=== PATIENT | female | born 1955 | race Caucasian/White ===

== ENCOUNTER → 2020-05-25 11:24 | Outpatient (BNVA) | payer MEDICARE, MEDICAID, SELFPAY | PROVIDERS: PCP Internal Medicine; Referring Provider Internal Medicine; Visit Provider Internal Medicine Gastroenterology | DX: Z76.89 Persons encountering health services in other specified circumstances (principal) | CPT/HCPCS: Q3014 ==

== ENCOUNTER 2020-05-27 08:31 | Outpatient (REF) | payer MEDICARE, MEDICAID, SELFPAY ==
[2020-05-27 11:21] LABS: MANUAL DIFF FLAG NO
[2020-05-27 11:27] LABS: Basophils Absolute Auto 0.1 X10*3/uL (0.0-0.2); Basophils Percent Auto 0.6 % (0-2); Eosinophils Absolute Auto 0.4 X10*3/uL (0.0-0.4); Eosinophils Percent Auto 3.9 % (0-4); Hematocrit 43.6 % (37-47); Hemoglobin 14.1 g/dl (12.0-16.0); Imm Gran Abs Auto 0.05 X10*3/uL (0.00-0.03); Imm Gran Pct Auto 0.5 % (0.0-0.4); Lymphocytes Absolute Auto 2.3 X10*3/uL (1.2-4.9); Lymphocytes Percent Auto 23.8 % (20-40); Mean Corpuscular HGB Conc 32.3 g/dl (31.0-35.0); Mean Corpuscular Hemoglobin 28.5 pg (27.0-33.0); Mean Corpuscular Volume 88.1 fL (80-98); Mean Platelet Volume 10.7 fL (9.4-12.3); Monocytes Absolute Auto 0.7 X10*3/uL (0.1-1.2); Monocytes Percent Auto 7.8 % (2-11); Neutrophils Percent Auto 63.4 % (45-73); Platelet Count 242 X10*3/uL (160-400); Red Blood Count 4.95 X10*6/uL (4.20-5.50); Red Cell Distribution Width 13.2 % (11.0-16.0); White Blood Count 9.5 X10*3/uL (4.8-10.8)
[2020-05-27 11:31] LABS: Prothrombin Time 11.6 SEC (10.8-13.0)
[2020-05-27 12:08] LABS: Alanine Aminotransferase 8 U/L (0-31); Albumin Level 4.4 g/dL (3.5-5.0); Alkaline Phosphatase 55 U/L (39-117); Anion Gap 13 (12-20); Aspartate Amino Transferase 14 U/L (5-31); Bilirubin Total 0.6 mg/dL (0.0-1.0); Blood Urea Nitrogen 13 mg/dL (9-16); Calcium 9.2 mg/dL (8.4-10.2); Carbon Dioxide 30 mmol/L (22-29); Chloride 105 mmol/L (96-108); Estimated Glomerular Filt Rate > 60; Glucose Random 98 mg/dL (60-115); Potassium 4.3 mmol/l (3.3-5.1); Sodium 144 mmol/L (135-145); Total Protein 6.9 g/dL (6.5-8.0)
[2020-06-02 13:27] LABS: Alpha Fetoprotein 4.9 ng/mL
== END 2020-05-27 08:32 | disposition home or self-care (01) ==
LOC: HO.HMGCLDS 08:31
PROVIDERS: PCP Internal Medicine; Visit Provider Internal Medicine Gastroenterology
DX: K70.31 Alcoholic cirrhosis of liver with ascites (principal)
CPT/HCPCS: 36415; 80053; 82105; 85025; 85610

== ENCOUNTER 2020-06-28 10:27 | Outpatient (REF) | payer MEDICARE, MEDICAID, SELFPAY ==
--- NOTE | 2020-06-28 10:32 | US_ITS ---
EXAMINATION: US ABDOMEN COMPLETE CLINICAL INFORMATION: Alcoholic cirrhosis of liver with ascites. COMPARISON: Ultrasound abdomen 10/27/2019 and 10/14/2018.. Ultrasound paracentesis 08/15/2017. CT abdomen and pelvis 08/14/2017 TECHNIQUE: Real-time imaging of the abdominal viscera. FINDINGS: PANCREAS: Normal. ABDOMINAL AORTA: The proximal, mid, and distal segments are normal in caliber. There is evidence of atherosclerotic disease with vessel wall calcification. INFERIOR VENA CAVA: Visualized portions are normal. LIVER: Liver echotexture is slightly heterogeneous chest of hepatocellular disease. The contour of the liver slightly scalloped suggestive of cirrhosis. Liver appears normal in size. No focal liver lesion or biliary duct dilatation is seen. GALLBLADDER: There is a small gallstone in the gallbladder. The gallbladder wall does not appear thickened. The gallbladder is normal in size. COMMON BILE DUCT: Normal in caliber measuring 0.45 cm in diameter. RIGHT KIDNEY: Normal. No hydronephrosis. No renal calculi or focal parenchymal lesions. The kidney measures 8.8 cm in maximum dimension. LEFT KIDNEY: Normal. No hydronephrosis. No renal calculi or focal parenchymal lesions. The kidney measures 10.3 cm in maximum dimension. SPLEEN: Normal. The spleen measures 7.9 cm in maximum dimension. FREE FLUID: None. US/US abdomen complete IMPRESSION: Cirrhotic-appearing liver. No focal liver lesion or ascites seen. Small gallstone.
== END 2020-06-28 10:28 | disposition home or self-care (01) ==
LOC: HO.US 10:27
PROVIDERS: PCP Internal Medicine; Visit Provider Internal Medicine Gastroenterology
DX: K70.31 Alcoholic cirrhosis of liver with ascites (principal)
CPT/HCPCS: 76700

== ENCOUNTER → 2020-07-22 09:48 | Outpatient (BNVA) | payer MEDICARE, MEDICAID, SELFPAY | PROVIDERS: PCP Internal Medicine; Referring Provider Internal Medicine; Visit Provider Internal Medicine Gastroenterology | CPT/HCPCS: Q3014 ==

== ENCOUNTER 2023-04-10 12:25 | Emergency (ER) | payer OTHER, SELFPAY ==
[2023-04-10 14:00] VITALS: BP 179/59; PULSE 49; RESP 16; TEMP 36.2; O2SAT 99; BMI 26.2
[2023-04-10 14:21] LABS: MANUAL DIFF FLAG NO
[2023-04-10 14:22] LABS: Basophils Absolute Auto 0.1 X10*3/uL (0.0-0.2); Basophils Percent Auto 0.6 % (0-2); Eosinophils Absolute Auto 0.3 X10*3/uL (0.0-0.4); Hematocrit 40.4 % (37.0-47.0); Imm Gran Abs Auto 0.04 X10*3/uL (0.00-0.03); Imm Gran Pct Auto 0.4 % (0.0-0.4); Lymphocytes Absolute Auto 2.1 X10*3/uL (1.2-4.9); Lymphocytes Percent Auto 22.5 % (20-40); Mean Corpuscular HGB Conc 32.2 g/dl (31.0-35.0); Mean Corpuscular Hemoglobin 28.6 pg (27.0-33.0); Mean Platelet Volume 9.8 fL (9.4-12.3); Monocytes Absolute Auto 0.9 X10*3/uL (0.1-1.2); Monocytes Percent Auto 9.3 % (2-11); Neutrophils Percent Auto 64.2 % (45-73); Platelet Count 271 X10*3/uL (160-400); Red Blood Count 4.54 X10*6/uL (4.20-5.50); Red Cell Distribution Width 13.1 % (11.0-16.0); White Blood Count 9.3 X10*3/uL (4.8-10.8)
[2023-04-10 14:44] LABS: Alanine Aminotransferase 11 U/L (0-31); Albumin Level 4.5 g/dL (3.5-5.0); Alkaline Phosphatase 65 U/L (39-117); Anion Gap 15 (12-20); Aspartate Amino Transferase 16 U/L (5-31); Bilirubin Total 0.8 mg/dL (0.0-1.0); Blood Urea Nitrogen 20 mg/dL (9-16); Calcium 10.1 mg/dL (8.4-10.2); Carbon Dioxide 25 mmol/L (22-29); Chloride 107 mmol/L (96-108); Creatinine Clr Calc Pharmacy 44.6; Estimated Glomerular Filt Rate 54; Glucose Random 91 mg/dL (60-115); Magnesium 2.2 mg/dL (1.6-2.6); Potassium 4.8 mmol/L (3.3-5.1); Sodium 142 mmol/L (135-145); Total Protein 7.6 g/dL (6.5-8.0)
[2023-04-10 14:47] LABS: Lipase 40 U/L (8-78)
== END 2023-04-10 20:31 | disposition left against medical advice (07) ==
LOC: HO.ED 20:20
PROVIDERS: Physician Assistant; Emergency Provider Emergency Medicine; PCP Internal Medicine
DX: R10.9 Unspecified abdominal pain (principal)
CPT/HCPCS: 36415; 80053; 83690; 83735; 85025; 99281; 99283

== ENCOUNTER 2023-05-31 10:30 | Outpatient (AMB) | payer OTHER, SELFPAY ==
--- NOTE | 2023-05-31 10:41 | MHC.OFFVIS ---
Intake Vital Signs 05/31/23 11:05 Height 5 ft 1 in Weight 140 lb BMI 26.4 BP 117/54 L Blood Pressure Location Lt brachial Position Sitting Pulse 49 L Intake Visit Reasons: Cirrhosis Intake Note: Patient follow up for Cirrhosis Patient denies any GI issues. 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 Accompanied by: Self / Same As Patient Allergies No Known Allergies Allergy (Verified 05/31/23 10:41) Medication List - Last Reconciled 05/31/23 by Chetan White MD atenolol 25 mg PO DAILY bupropion HCl 100 mg PO QAM sulindac 150 mg PO BID HPI Cirrhosis HPI Details GI CLINIC VISIT FOR THIS 67-YEAR-OLD FEMALE FOR FOLLOW-UP OF CIRRHOSIS AND PERSONAL HISTORY OF COLON POLYPS Pt returns after a hiatus of almost 3 years CHRONIC ILLNESSES: htn, depression, past history of cocaine and ETOH abuse complicated by ETOH related cirrhosis with ascites [facility]. 07/28/19 H & H of 14.3 & 43.8, plt 202, INR 1.0, Normal BMP and LFTs. IMAGING STUDIES: 06/2020 ABDOMINAL ULTRASOUND SHOWED: LIVER: Liver echotexture is slightly heterogeneous chest of hepatocellular disease. The contour of the liver slightly scalloped suggestive of cirrhosis. Liver appears normal in size. No focal liver lesion or biliary duct dilatation is seen. GALLBLADDER: There is a small gallstone in the gallbladder. The gallbladder wall does not appear thickened. The gallbladder is normal in size. ENDOSCOPIC STUDIES: Pt had an EGD and a colonoscopy on 10/21/18: Endoscopy Findings: ESOPHAGUS: Minimal esophagitis at GE junction STOMACH: Antral gastritis ? related to NSAIDS Colonoscopy Findings: One polyp removed Moderate diverticulosis seen in the entire colon Small hemorrhoids on retroflexed exam. Plan: Continue present medications (Ranitidine 150 mg PO once daily) Patient has an appointment on 11/04/18 in the GI Clinic with Chetan White M.D. Repeat Colonoscopy interval based on path results - in 5 years if polyps are adenomatous and 10 years if polyps are hyperplastic (past history of colon polyps on 1st colon and 2nd colon was negative). Above findings were reviewed with the patient and colon polyps and diverticulosis handouts were provided. A. Stomach, biopsy: Mild chronic inactive gastritis; no Helicobacter organisms seen. B. Colon, sigmoid, polypectomy: Hyperplastic mucosal polyp TODAY'S VISIT Did not come for FU appts since her BF and lost her apartment and car Was living with daughter and was not happy and resumed drinking Now has her own place and doing better except for arthritis and back Scheduled for GB surgery on 06/13/23 Denies abdominal pain or distension Quitted smoking November, after having procedures - lower extremity stent No ETOH since August, PAST VISITS: Staying home. Has been gaining some weight. Notes some abdominal distension for the past month - thinks she is eating too much junk food. Denies lower extermity edema No ETOH use since 07/2017. Denies fatigue and has trouble going to sleep at night. Keeps waking up at night - she was prescribed Hydroxyzine 50 mg by her PCP and does not help. Tried Benadryl in the past which did not help either. Denies nausea, heartburn, dysphagia, change in bowel habits, melena or rectal bleeding. Continues to smoke half pack per day-decreased from 1 pack per day in the past [facility] Medical History (Updated 05/31/23 @ 11:46 by Chetan White MD) Cocaine abuse Surgical History Hx of tubal ligation Hx of endoscopy History of colonoscopy Family History Father No problems noted. Mother Hx of type 1 diabetes mellitus Brother No problems noted. Sister No problems noted. Social History Household Members: Significant Other Alcohol intake: former Year quit: 3 yr Cigarette Packs Per Day: 0.5 Substance Use Type: Marijuana Current occupational status: retired Review of Systems Const All systems reviewed & are unremarkable except as noted in HPI and below Physical Exam Vital Signs: Last Vital Signs Pulse 49 L 05/31/23 11:05 BP 117/54 L 05/31/23 11:05 BMI result Body Mass Index 26.4 Const General: healthy appearing and no acute distress Nutritional Appearance: overweight Orientation/consciousness: patient oriented x3 Limitations: no limitations HEENT Head: Yes normal to inspection Ears: hearing grossly normal bilaterally Eyes Sclerae: sclerae normal Pupils: Equal, round and reactive pupils present Neck Neck: Yes normal visual inspection Chest Chest palpation & inspection: normal inspection of the chest Resp Effort & Inspection: normal respiratory effort Auscultation: clear to auscultation bilaterally Cardio Palpation: normal PMI Rate: regular rate Rhythm: regular rhythm Heart sounds: S1 normal heart sound present, S2 normal heart sound present and no murmurs GI Palpation (GI): Soft to palpation, nontender and No hepatosplenomegaly present Auscultation: normal bowel sounds Rectal Exam - Female: deferred Skin General skin exam: no rashes or lesions noted Neuro General: patient oriented x3, gait normal and moves all extremities Cranial nerves: Yes Equal, round and reactive pupils present Psych Appearance: grossly normal Mental Status: mental status grossly normal Assessment & Plan Assessment & Plan (1) GERD (gastroesophageal reflux disease): Code(s): K21.9 - Gastro-esophageal reflux disease without esophagitis (2) Alcoholic cirrhosis of liver with ascites: Code(s): K70.31 - Alcoholic cirrhosis of liver with ascites (3) Colon cancer screening: Comment: Colonoscopy on 10/21/2018 showed diverticulosis and hyperplastic polyp was removed. Repeat Colonoscopy is advised in 10 years (past history of colon polyps on 1st colon and 2nd colon was negative). Code(s): Z12.11 - Encounter for screening for malignant neoplasm of colon Plan 67 YF with htn, depression, past history of cocaine and ETOH abuse complicated by ETOH related cirrhosis with ascites. She quitted drinking 2 years ago with improvement in abdominal distension. Patient stopped diuretics since her LFTs were normal and no ascites was noted on abdominal ultrasound. No varices noted on past EGD. She has been abstinent for the past 2 years. Patient was advised to take Benadryl as needed for sleep disturbance. Colonoscopy on 10/21/2018 showed diverticulosis and hyperplastic polyp was removed. Repeat Colonoscopy is advised in 10 years (past history of colon polyps on 1st colon and 2nd colon was negative). Patient was advised to schedule an abd US and follow up in 6 months. Orders: Orders US abdomen limited Today K70.31 - Alcoholic cirrhosis of liver with ascites Coding Level of Care Code Est Pt Level 4 (52107) Diagnoses GERD (gastroesophageal reflux disease) K21.9 Alcoholic cirrhosis of liver with ascites K70.31 Colon cancer screening Z12.11 Time Spent (min) 21
[2023-05-31 11:05] VITALS: BP 117/54; PULSE 49; BMI 26.4
== END 2023-05-31 12:58 | disposition home or self-care (01) ==
PROVIDERS: PCP Internal Medicine; Visit Provider Internal Medicine Gastroenterology
DX: K21.9 Gastro-esophageal reflux disease without esophagitis (principal); K70.31 Alcoholic cirrhosis of liver with ascites; Z12.11 Encounter for screening for malignant neoplasm of colon
CPT/HCPCS: 99214

== ENCOUNTER → 2023-05-31 10:30 | Outpatient (BNVA) | payer OTHER, SELFPAY | PROVIDERS: PCP Internal Medicine; Visit Provider Internal Medicine Gastroenterology | DX: Z12.11 Encounter for screening for malignant neoplasm of colon (principal); K21.9 Gastro-esophageal reflux disease without esophagitis; K70.31 Alcoholic cirrhosis of liver with ascites | CPT/HCPCS: 99212 ==

== ENCOUNTER 2023-07-06 10:27 | Outpatient (REF) | payer OTHER, SELFPAY ==
--- NOTE | ~2023-07-06 | US_ITS ---
EXAMINATION: US ABDOMEN LIMITED CLINICAL INFORMATION: Alcoholic cirrhosis of liver with ascites. Screen for HCC and ascites. COMPARISON: Ultrasound abdomen complete 06/28/2020 and 10/27/2019. CT abdomen and pelvis 08/14/2017. TECHNIQUE: Real-time imaging of the right upper quadrant abdominal viscera. FINDINGS: PANCREAS: Normal. LIVER: Liver chronically has coarse parenchymal echotexture and slightly nodular surface contour consistent with cirrhosis. No evidence of focal liver lesion or intrahepatic ductal dilatation. GALLBLADDER: Surgically absent. COMMON BILE DUCT: Normal in caliber measuring 0.6 - 0.7 cm in diameter. RIGHT KIDNEY: Normal. No hydronephrosis. No renal calculi or focal parenchymal lesions. The kidney measures approximately 8.5 cm in maximum dimension. FREE FLUID: None. US/US abdomen limited IMPRESSION: No evidence of hepatocellular carcinoma or ascites. No new observations compared to 10/27/2019.
== END 2023-07-06 10:28 | disposition home or self-care (01) ==
LOC: HO.US 10:27
PROVIDERS: PCP Internal Medicine; Visit Provider Internal Medicine Gastroenterology
DX: K70.31 Alcoholic cirrhosis of liver with ascites (principal)
CPT/HCPCS: 76705

== ENCOUNTER 2023-12-06 11:46 | Outpatient (REF) | payer OTHER, SELFPAY ==
[2023-12-06 12:51] LABS: MANUAL DIFF FLAG NO
[2023-12-06 14:02] LABS: Basophils Absolute Auto 0.1 X10*3/uL (0.0-0.2); Basophils Percent Auto 0.8 % (0-2); Eosinophils Absolute Auto 0.2 X10*3/uL (0.0-0.4); Eosinophils Percent Auto 2.4 % (0-4); Hematocrit 38.3 % (37.0-47.0); Hemoglobin 12.8 g/dl (12.0-16.0); Imm Gran Abs Auto 0.03 X10*3/uL (0.00-0.03); Imm Gran Pct Auto 0.4 % (0.0-0.4); Lymphocytes Absolute Auto 1.4 X10*3/uL (1.2-4.9); Lymphocytes Percent Auto 17.4 % (20-40); Mean Corpuscular HGB Conc 33.4 g/dl (31.0-35.0); Mean Corpuscular Hemoglobin 29.8 pg (27.0-33.0); Mean Corpuscular Volume 89.1 fL (80.0-98.0); Mean Platelet Volume 10.9 fL (9.4-12.3); Monocytes Absolute Auto 0.8 X10*3/uL (0.1-1.2); Monocytes Percent Auto 9.6 % (2-11); Neutrophils Absolute Auto 5.5 x10*3/uL (2.0-8.3); Neutrophils Percent Auto 69.4 % (45-73); Platelet Count 246 X10*3/uL (160-400); Red Cell Distribution Width 13.7 % (11.0-16.0); White Blood Count 7.9 X10*3/uL (4.8-10.8)
[2023-12-06 14:21] LABS: Prothrombin Time 12.5 SEC (11.1-13.3)
[2023-12-06 14:49] LABS: Vitamin D 25-OH Total 34.7 ng/mL (>30)
[2023-12-07 08:02] LABS: Hepatitis A Antibody IgG Nonreactive (Nonreactive); ~Hepatitis A Antibody IgG 0.48 S/CO (0.00-0.99)
[2023-12-07 08:13] LABS: HBS Num1 0.28 mIU/mL (0-7.99); HBc Num1 0.08 S/CO (0.00-0.79); HBsAGNum1 0.26 S/CO (0.00-0.99); Hepatitis B Core Antibody Nonreactive (Nonreactive); Hepatitis B Surface Antigen Negative (Negative); ~HepC Num1 0.07 S/CO (0.00-0.79); ~Hepatitis B Surface Antibody NONREACTIVE (Nonreactive); ~Hepatitis C Antibody Nonreactive (Nonreactive)
[2023-12-22 01:05] LABS: FIB-ALT 7 U/L (6-29); FIB-Alpha-2-Macroglobulin 257 mg/dL (106-279); FIB-Apolipoprotein A1 161 mg/dL (101-198); FIB-GGT 17 U/L (3-65); FIB-Haptoglobin 220 mg/dL (43-212); FIB-Total Bilirubin 0.7 mg/dL (0.2-1.2); Liver Fibrosis Score 0.27; Liver Fibrosis Stage F1; Nec Inflam Act Grade A0; Nec Inflam Act Score 0.01
== END 2023-12-06 11:47 | disposition home or self-care (01) ==
LOC: HO.LAB 11:46
PROVIDERS: PCP Internal Medicine; Visit Provider Internal Medicine Gastroenterology
DX: K70.31 Alcoholic cirrhosis of liver with ascites (principal); K21.9 Gastro-esophageal reflux disease without esophagitis
CPT/HCPCS: 36415; 81596; 82306; 85025; 85610; 86704; 86706; 86708; 86803; 87340; 99212

== ENCOUNTER 2023-12-06 11:46 | Outpatient (AMB) | payer OTHER, SELFPAY ==
--- NOTE | 2023-12-06 11:49 | A.OFFVIS_ITS ---
Vital Signs 12/06/23 11:50 Height 5 ft 1 in Weight 135 lb BMI 25.5 BP 131/49 L Blood Pressure Location Lt brachial Position Sitting Pulse 54 Intake Visit Reasons: 6 month follow up Intake Note: Patient follow up for Alcoholic Cirrhosis of liver with ascites. Patient denies any GI issues. Transcribing Operators Supervisor Required: No Accompanied by: Self / Same As Patient Allergies No Known Allergies Allergy (Verified 05/31/23 10:41) Medication List - Last Reconciled 12/06/23 by Chetan White MD atenolol 25 mg PO DAILY atorvastatin 10 mg PO DAILY bupropion HCl XL 150 mg PO DAILY clopidogrel 75 mg PO DAILY estradiol 0.01%(0.1mg/gram) vaginal hydroxyzine HCl 25 mg PO BEDTIME PRN mirabegron ER (Myrbetriq) 25 mg PO DAILY mirtazapine 7.5 mg PO BEDTIME spironolactone 50 mg PO DAILY sulindac 150 mg PO BID HPI HPI 6 month follow up: Details: GI CLINIC VISIT FOR THIS 67-YEAR-OLD FEMALE FOR FOLLOW-UP OF CIRRHOSIS AND PERSONAL HISTORY OF COLON POLYPS CHRONIC ILLNESSES: htn, depression, past history of cocaine and ETOH abuse complicated by ETOH related cirrhosis with ascites [facility] reviewed. 07/28/19 H & H of 14.3 & 43.8, plt 202, INR 1.0, Normal BMP and LFTs. IMAGING STUDIES: 07/06/23 ABD US SHOWED: LIVER: Liver chronically has coarse parenchymal echotexture and slightly nodular surface contour consistent with cirrhosis. No evidence of focal liver lesion or intrahepatic ductal dilatation. GALLBLADDER: Surgically absent. COMMON BILE DUCT: Normal in caliber measuring 0.6 - 0.7 cm in diameter. FREE FLUID: None. IMPRESSION: No evidence of hepatocellular carcinoma or ascites. No new observations compared to 06/2020 ABDOMINAL ULTRASOUND SHOWED: LIVER: Liver echotexture is slightly heterogeneous chest of hepatocellular disease. The contour of the liver slightly scalloped suggestive of cirrhosis. Liver appears normal in size. No focal liver lesion or biliary duct dilatation is seen. GALLBLADDER: There is a small gallstone in the gallbladder. The gallbladder wall does not appear thickened. The gallbladder is normal in size. ENDOSCOPIC STUDIES: Pt had an EGD and a colonoscopy on 10/21/18: Endoscopy Findings: ESOPHAGUS: Minimal esophagitis at GE junction STOMACH: Antral gastritis ? related to NSAIDS Colonoscopy Findings: One polyp removed Moderate diverticulosis seen in the entire colon Small hemorrhoids on retroflexed exam. Plan: Continue present medications (Ranitidine 150 mg PO once daily) Patient has an appointment on 11/04/18 in the GI Clinic with Chetan White M.D. Repeat Colonoscopy interval based on path results - in 5 years if polyps are adenomatous and 10 years if polyps are hyperplastic (past history of colon polyps on 1st colon and 2nd colon was negative). Above findings were reviewed with the patient and colon polyps and diverticulosis handouts were provided. A. Stomach, biopsy: Mild chronic inactive gastritis; no Helicobacter organisms seen. B. Colon, sigmoid, polypectomy: Hyperplastic mucosal polyp TODAY'S VISIT Denies abdominal pain, recent change in BM, abd distension or ankle edema. Takes 1 drink to ETOH at bedtime prn to help her to sleep. PAST VISITS: Did not come for FU appts since her BF and she lost her apartment and car Was living with daughter and was not happy and resumed drinking Now has her own place and doing better except for arthritis and back Scheduled for GB surgery on 06/13/23 Denies abdominal pain or distension Quitted smoking November, after having procedures - lower extremity stent No ETOH since August, Staying home. Has been gaining some weight. Notes some abdominal distension for the past month - thinks she is eating too much junk food. Denies lower extermity edema No ETOH use since 07/2017. Denies fatigue and has trouble going to sleep at night. Keeps waking up at night - she was prescribed Hydroxyzine 50 mg by her PCP and does not help. Tried Benadryl in the past which did not help either. Denies nausea, heartburn, dysphagia, change in bowel habits, melena or rectal bleeding. Continues to smoke half pack per day-decreased from 1 pack per day in the past [facility] Medical History (Updated 05/31/23 @ 11:46 by Chetan White MD) Cocaine abuse Surgical History Hx of tubal ligation Hx of endoscopy History of colonoscopy Family History Father No problems noted. Mother Hx of type 1 diabetes mellitus Brother No problems noted. Sister No problems noted. Social History Household Members: Significant Other Alcohol intake: former Year quit: 3 yr Cigarette Packs Per Day: 0.5 Substance Use Type: Marijuana Current occupational status: retired Review of Systems Const All systems reviewed & are unremarkable except as noted in HPI and below Physical Exam Vital Signs: Last Vital Signs Pulse 54 12/06/23 11:50 BP 131/49 L 12/06/23 11:50 BMI result Body Mass Index 25.5 Const General: healthy appearing and no acute distress Nutritional Appearance: overweight Orientation/consciousness: patient oriented x3 Limitations: no limitations HEENT Head: Yes normal to inspection Ears: hearing grossly normal bilaterally Eyes Sclerae: sclerae normal Pupils: Equal, round and reactive pupils present Neck Neck: Yes normal visual inspection Chest Chest palpation & inspection: normal inspection of the chest Resp Effort & Inspection: normal respiratory effort Auscultation: clear to auscultation bilaterally Cardio Palpation: normal PMI Rate: regular rate Rhythm: regular rhythm Heart sounds: S1 normal heart sound present, S2 normal heart sound present and no murmurs GI Palpation (GI): Soft to palpation, nontender and No hepatosplenomegaly present Auscultation: normal bowel sounds Rectal Exam - Female: deferred Skin General skin exam: no rashes or lesions noted Neuro General: patient oriented x3, gait normal and moves all extremities Cranial nerves: Yes Equal, round and reactive pupils present Psych Appearance: grossly normal Mental Status: mental status grossly normal Assessment & Plan Assessment & Plan (1) Alcoholic cirrhosis of liver with ascites: Code(s): K70.31 - Alcoholic cirrhosis of liver with ascites Category: Medical (2) GERD (gastroesophageal reflux disease): Code(s): K21.9 - Gastro-esophageal reflux disease without esophagitis Category: Medical (3) Colon cancer screening: Comment: Colonoscopy on 10/21/2018 showed diverticulosis and hyperplastic polyp was removed. Repeat Colonoscopy is advised in 10 years (past history of colon polyps on 1st c olon and 2nd colon was negative). Code(s): Z12.11 - Encounter for screening for malignant neoplasm of colon Category: Medical Plan 67 YF with htn, depression, past history of cocaine and ETOH abuse complicated by ETOH related cirrhosis with ascites. She quitted drinking 2 years ago with improvement in abdominal distension. Patient stopped diuretics since her LFTs were normal and no ascites was noted on abdominal ultrasound. No varices noted on past EGD. She has been abstinent for the past 2 years. Patient was advised to take Benadryl as needed for sleep disturbance. Colonoscopy on 10/21/2018 showed diverticulosis and a hyperplastic polyp was removed. Repeat Colonoscopy is advised in 10 years (past history of colon polyps on 1st colon and 2nd colon was negative). REDUCING THE RISK OF LIVER PROGRESSION: patient was advised to completely avoid use of alcohol and lose weight. HCC SURVEILLANCE: the patient is at risk of developing hepatocellular carcinoma given the presence of cirrhosis and need 6 monthly imaging surve illance with either abdominal ultrasound (US) or multiphase cross-sectional imaging (CT or MRI). Last Abd US on 07/06/23 had shown no focal liver lesions suspicious of HCC. She will be scheduled for follow-up liver ultrasound for ongoing surveillance. VACCINATIONS: I will check hepatitis serologies to determine if pt needs to be vaccinated for Hep A and B. Patient should also remain up-to-date with all age-appropriate vaccinations including vaccination against pneumococcus. As we no longer have vaccines available in our Clinic, I request PCP to arrange this. SURVEILLANCE FOR GASTROESOPHAGEAL VARICES: No varices seen on past EGD. QUESTION OF LIVER TRANSPLANTATION: As pt has never had any hepatic decompensation, and continues to have good hepatic synthetic function with meld score of 7, liver transplantation does not need to be considered at this time. Patient was advised to schedule an abd US and follow up in 6 months Orders: Orders Complete Blood Count Auto Diff Today K70.31 - Alcoholic cirrhosis of liver with ascites Prothrombin Time INR Today K70.31 - Alcoholic cirrhosis of liver with ascites US abdomen limited Today K70.31 - Alcoholic cirrhosis of liver with ascites Hepatitis B Surface Antigen Today K70.31 - Alcoholic cirrhosis of liver with ascites Hepatitis B Core Antibody Today K70.31 - Alcoholic cirrhosis of liver with ascites Hepatitis C Antibody Today K70.31 - Alcoholic cirrhosis of liver with ascites Liver Fibrosis Pnl Today K70.31 - Alcoholic cirrhosis of liver with ascites Vitamin D 25-OH Total Today K70.31 - Alcoholic cirrhosis of liver with ascites Hepatitis B Surface Antibody Today K70.31 - Alcoholic cirrhosis of liver with ascites Hepatitis A IgG Today K70.31 - Alcoholic cirrhosis of liver with ascites Coding Level of Care Code Est Pt Level 4 (94084) Diagnoses Alcoholic cirrhosis of liver with ascites K70.31 GERD (gastroesophageal reflux disease) K21.9 Colon cancer screening Z12.11 Time Spent (min) 22
[2023-12-06 11:50] VITALS: BP 131/49; PULSE 54; BMI 25.5
== END 2023-12-06 12:22 | disposition home or self-care (01) ==
PROVIDERS: PCP Internal Medicine; Visit Provider Internal Medicine Gastroenterology
DX: K70.31 Alcoholic cirrhosis of liver with ascites (principal); K21.9 Gastro-esophageal reflux disease without esophagitis; Z12.11 Encounter for screening for malignant neoplasm of colon
CPT/HCPCS: 99214

== ENCOUNTER 2023-12-13 08:26 | Outpatient (REF) | payer OTHER, SELFPAY ==
--- NOTE | ~2023-12-13 | US_ITS ---
EXAMINATION: US ABDOMEN LIMITED CLINICAL INFORMATION: Alcoholic cirrhosis of liver with ascites. COMPARISON: Limited abdominal ultrasound 07/06/2023. Ultrasound abdomen complete 06/28/2020. CT abdomen and pelvis 08/14/2017. TECHNIQUE: Real-time imaging of the right upper quadrant abdominal viscera. Limited visualization due to bowel gas. FINDINGS: PANCREAS: Limited visualization of pancreatic tail and head. Imaged portion of pancreatic body is unremarkable. LIVER: Diffusely coarse and heterogeneous hepatic echotexture with nodular hepatic contour compatible with given history of cirrhosis. Limited visualization. GALLBLADDER: Surgically absent. COMMON BILE DUCT: Normal in caliber measuring 0.6 cm in diameter. RIGHT KIDNEY: No hydronephrosis. No renal calculi. Limited visualization. The kidney measures 8.5 cm in maximum dimension. FREE FLUID: None. US/US abdomen limited IMPRESSION: 1. Diffusely coarse and heterogeneous hepatic echotexture with nodular hepatic contour compatible with given history of cirrhosis. Limited visualization. 2. Gallbladder surgically absent.
== END 2023-12-13 08:27 | disposition home or self-care (01) ==
LOC: HO.US 08:26
PROVIDERS: PCP Internal Medicine; Visit Provider Internal Medicine Gastroenterology
DX: K70.31 Alcoholic cirrhosis of liver with ascites (principal)
CPT/HCPCS: 76705

== ENCOUNTER 2025-06-17 10:30 | Emergency (ER) | payer OTHER, SELFPAY ==
--- NOTE | ~2025-06-17 | XR_ITS ---
EXAMINATION: XR CHEST CLINICAL INFORMATION: cough x mos COMPARISON: X-ray 08/14/2017 TECHNIQUE: 2 views of the chest were obtained. FINDINGS: The cardiomediastinal silhouette is within normal limits. The lungs are well expanded. Mild bronchial wall thickening in bilateral lower lungs. There is no focal consolidation, edema, or effusion. No pneumothorax. No acute osseous abnormality. XR/XR chest 2V IMPRESSION: Mild bronchial wall thickening can be seen with a small airway process such as asthma or atypical/viral infections. Electronically signed by: Jesús Souza MD 06/17/2025 11:20 AM EST
[2025-06-17 10:57] VITALS: BP 131/63; PULSE 70; RESP 24; TEMP 36.1; O2SAT 95; BMI 26.0
--- NOTE | 2025-06-17 10:58 | ED.GENADULT ---
HPI - General Adult General Chief complaint: Dyspnea Stated complaint: trouble breathing Time Seen by Provider: 06/17/25 11:19 Source: patient Mode of arrival: ambulatory Limitations: no limitations History of Present Illness ED Provider: MATHEUS WELCH PA-C HPI narrative: 69-year-old female with past medical history significant for HTN, HLD, depression, GERD, cocaine abuse, alcohol abuse complicated by etoh related cirrhosis and ascities presents to the ED today for evaluation of increasing wheezing, shortness of breath and nonproductive cough x1-2 weeks. Patient reports following with her PCP who ordered outpatient pulmonary function testing at [facility] on 06/04/2025. Patient received the result that she was diagnosed with COPD/emphysema. She has a yet to follow up with her primary care provider regarding this. She was prescribed combivent to use 4 times daily at home. She has been using this with minimal relief. She was not started on any steroids or antibiotics. Reports increasing wheezing and cough intermittently productive of yellow sputum. Endorses orthopnea, stating that she needs to sleep propped up at night. Denies any chest pain, LE pain/swelling. Admtis to of tobacco dependence, quit a few years ago. She is currently anticoagulated on Plavix. Related Data Home Medications ?Medication ?Instructions ?Recorded ?Confirmed atenolol 25 mg tablet 25 mg PO DAILY 05/25/20 12/06/23 sulindac 150 mg tablet 150 mg PO BID 05/25/20 12/06/23 atorvastatin 10 mg tablet 10 mg PO DAILY 12/06/23 12/06/23 bupropion HCl 150 mg 24 hr tablet, 150 mg PO DAILY 12/06/23 12/06/23 extended release clopidogrel 75 mg tablet 75 mg PO DAILY 12/06/23 12/06/23 estradiol 0.01% (0.1 mg/gram) vaginal 12/06/23 12/06/23 vaginal cream hydroxyzine HCl 25 mg tablet 25 mg PO BEDTIME PRN insomnia 12/06/23 12/06/23 mirabegron 25 mg tablet,extended 25 mg PO DAILY 12/06/23 12/06/23 release 24 hr (Myrbetriq) mirtazapine 7.5 mg tablet 7.5 mg PO BEDTIME 12/06/23 12/06/23 spironolactone 50 mg tablet 50 mg PO DAILY 12/06/23 12/06/23 Previous Rx's ?Medication ?Instructions ?Recorded doxycycline hyclate 100 mg tablet 100 mg PO BID 7 days #14 tabs 06/17/25 guaifenesin 200 mg/5 mL oral liquid 200 mg (5 mL) PO Q4H PRN cough 06/17/25 #118 mL prednisone 20 mg tablet 40 mg (2 x 20 mg) PO DAILY 5 days 06/17/25 #10 tabs Allergies Allergy/AdvReac Type Severity Reaction Status Date / Time No Known Allergies Allergy Verified 06/17/25 10:59 Review of Systems Review of Systems: Yes all other systems are reviewed and are negative PMFSH Past Medical History Attestation statement: The following information was validated with the patient. Source: old records reviewed and nursing notes reviewed Medical History Cocaine abuse Surgical History Hx of tubal ligation Hx of endoscopy History of colonoscopy Family History Family History Father No problems noted. Mother Hx of type 1 diabetes mellitus Brother No problems noted. Sister No problems noted. Social History Social History Household Members: Significant Other Alcohol intake: current Alcohol intake frequency: holidays/special occasions only Cigarette Packs Per Day: 0.5 Substance Use Type: Marijuana Current occupational status: retired Physical Exam ED Vital Signs: Vital Signs - 24 hr 06/17/25 12:49 06/17/25 14:16 Temperature 97.8 F 98.2 F Pulse Rate 70 67 Respiratory Rate 16 16 Blood Pressure 125/59 L 132/54 L Pulse Oximetry 96 94 Oxygen Delivery Method Room Air Room Air BMI result Body Mass Index 26.0 Tachypneic, vitals are otherwise WNL General: Appears older than stated age, NAD Skin: Warm, dry, intact. No rashes or lesions. No mottling Head: Normocephalic, atraumatic. EENT: Hearing is intact b/l. Conjunctiva clear. Sclera is anicteric. PERRLA. EOM intact. Moist mucous membranes.? Neck: Supple without LAD Cardiac: Chest wall symmetric. RRR Lungs: speaking in 2-3 word sentences secondary to continuous bronchospastic cough. No tripoding. She has diffuse expiratory wheezes/rhonchi, no crackles Abdomen: Soft, non-tender, non-distended. No rebound tenderness or guarding. Positive BS x4. Ext: No pitting edema or calf tenderness bilaterally Neuro: AOx3. Normal speech. Ambulating with steady gait. Course Course Course Narrative: This is a rapid medical exam performed by Korina Diego NP: Additional HPI, ROS, PE not included below will be deferred to primary provider. Patient is a 69y/o F presenting with shortness of breath since March. Saw PCP who sent her for PFT. States she was dx with COPD and emphysema. Was started on a combivent but is not feeling any better. Plan: Labs, cxr, viral serology Reevaluation(s) Reevaluation #1: CBC without leukocytosis or left shift. No anemia, H and H stable. Chemistry without acute electrolyte abnormality requiring intervention. No YADI. Liver function at baseline. NT pro BNP 113.5, no concern for CHF. Negative COVID, flu, RSV. Chest x-ray shows mild bronchial wall thickening which may be seen in small airway processes such as asthma or atypical/viral infections. Initial EKG showing possible atrial fibrillation however poor quality. I did repeat the EKG which is still reading atrial fibrillation. I appreciate P waves so I do not feel as though this is true AFib. I did discuss with my attending, Dr. Camarillo who feels this is more of a sinus dysrhythmia. Patient has no known history of atrial fibrillation. She denies any chest pain, palpitations. If this is true atrial fibrillation, it is currently rate controlled at 60-70 beats per minute and she is already on anticoagulation. > on re-evaluation, patient reports significant improvement in breathing after receiving bronchodilator treatment, Solu-Medrol and magnesium. Coughing has also improved after receiving guaifenesin. No respiratory distress noted. She is sustaining 96% on room air at rest. She did drop slightly to 91% on room air during ambulatory O2 trial however did not feel short of breath, did not have any difficulty walking. > you shared decision-making with patient to determine disposition home. I will start her on a 5 day course of prednisone and doxycycline. She received a call from her primary care provider while in the ED today and was provided with a referral to a amplifier mechanic so she will be following up with them. Patient has remained stable throughout ED visit today. Discussed worrisome signs and symptoms and when to return to the ED. All questions answered at this time. Patient is agreeable with disposition and stable for discharge. Medications Administered Discontinued Medications Generic Name Dose Route Start Last Admin Trade Name Alexi PRN Reason Stop Dose Admin Albuterol Sulfate 5 mg/ 0 mg 06/17/25 11:45 06/17/25 11:47 Albuterol/Ipratropium 3 ml INHALE 06/17/25 11:46 1 each ONCE ONE Administration Guaifenesin 10 ml 06/17/25 11:29 06/17/25 11:46 Guaifenesin 200 Mg/10 Ml 10 Ml Liquid PO 06/17/25 11:30 10 ml ONCE ONE Administration Magnesium Sulfate 2 gm in 50 mls @ 150 mls/hr 06/17/25 11:28 06/17/25 12:52 Magnesium Sulfate/H2o IV 06/17/25 11:47 Infused ONCE ONE Infusion Methylprednisolone Sodium Succinate 80 mg 06/17/25 11:28 06/17/25 11:46 Methylprednisolone Sod Succ 125 Mg/2 Ml Vial IVPUSH 06/17/25 11:29 80 mg ONCE ONE Administration Medical Decision Making Medical Decision Making [facility] Narrative: 69-year-old female with past medical history significant for HTN, HLD, depression, GERD, cocaine abuse, alcohol abuse complicated by etoh related cirrhosis and ascities presents to the ED today for evaluation of increasing wheezing, shortness of breath and nonproductive cough x1-2 weeks. Vital signs reveal tachypnea to 24. She is satting between 95 and 96% on room air. Vitals are otherwise WNL. Not tachycardic. On exam, she is speaking in 2-3 word sentences secondary to continuous bronchospastic cough. No tripoding. She has diffuse expiratory wheezes/rhonchi, no crackles. There is no pitting edema or calf tenderness bilaterally. no skin mottling. Differential diagnosis includes viral syndrome, bronchitis, pneumonia, COPD exacerbation, COPD, CHF, PE, ACS, arrhythmia Plan for labs, ekg, cxr, viral syndrome, ambulatory O2 trial, bronch treatment, IV steroids Differential Diagnosis Differential Diagnoses: The differential diagnosis associated with the presentation includes as above. Admission/Observation Consideration of admission/observation: Escalation of care including admission/observation considered Lab Data MDM Lab Attestation statement: I reviewed the patient's lab results. as above 06/17/25 11:16 06/17/25 11:16 Labs: Lab Results 06/17/25 Range/Units 11:16 WBC 8.8 (4.8-10.8) X10*3/uL RBC 4.94 (4.20-5.50) X10*6/uL Hgb 14.3 (12.0-16.0) g/dl Hct 44.9 (37.0-47.0) % MCV 90.9 (80.0-98.0) fL MCH 28.9 (27.0-33.0) pg MCHC 31.8 (31.0-35.0) g/dl RDW 13.3 (11.0-16.0) % Plt Count 335 D (160-400) X10*3/uL MPV 9.8 (9.4-12.3) fL Immature Gran % (Auto) 0.3 (0.0-0.4) % Neut % (Auto) 61.3 (45-73) % Lymph % (Auto) 18.7 L (20-40) % [place] % (Auto) 12.8 H (2-11) % Eos % (Auto) 6.0 H (0-4) % Baso % (Auto) 0.9 (0-2) % Lymph # (Auto) 1.6 (1.2-4.9) X10*3/uL [place] # (Auto) 1.1 (0.1-1.2) X10*3/uL Eos # (Auto) 0.5 H (0.0-0.4) X10*3/uL Baso # (Auto) 0.1 (0.0-0.2) X10*3/uL Abs Immat Gran (auto) 0.03 (0.00-0.03) X10*3/uL Absolute Neuts (auto) 5.4 (2.0-8.3) x10*3/uL Absolute Nucleated RBC 0.000 (0.0-0.012) X10*3/uL Nucleated RBC % (auto) 0.0 (0.0-0.2) /100WBC PT 13.8 H (11.2-13.5) SEC INR 1.1 (0.9-1.1) Sodium 142 (135-145) mmol/L Potassium 4.4 (3.3-5.1) mmol/L Chloride 107 (96-108) mmol/L Carbon Dioxide 25 (22-29) mmol/L Anion Gap 14 (12-20) BUN 11 (9-16) mg/dL Creatinine 1.14 (0.5-1.4) mg/dL Estim Creat Clear Calc 39.9 Estimated GFR 47 Random Glucose 85 (60-115) mg/dL Calcium 9.9 (8.4-10.2) mg/dL Total Bilirubin 0.8 (0.0-1.0) mg/dL AST 21 (5-31) U/L ALT 13 (0-31) U/L Alkaline Phosphatase 84 (39-117) U/L NT-Pro-B Natriuret Pep 113.5 (<300) pg/mL Total Protein 7.7 (6.5-8.0) g/dL Albumin 4.6 (3.5-5.0) g/dL Influenza Type A (PCR) NEGATIVE (Negative) Influenza Type B (PCR) NEGATIVE (Negative) RSV RNA Qual (PCR) NEGATIVE (Negative) SARS-CoV-2 RNA (RT-PCR) NEGATIVE (Negative) Independent Interpretation I performed an independent interpretation of an: EKG and Plain X-Ray Radiology Impression Discussion of test interpretation with radiology: I have reviewed the radiologist's reading. Radiologist Impression: Procedure(s): XR chest 2V Accession Number(s): [id number] cc: Stephen Kapoor III, MD; Gina Diego NP~ Reason for Exam: cough x mos EXAMINATION: XR CHEST CLINICAL INFORMATION: cough x mos COMPARISON: X-ray 08/14/2017 TECHNIQUE: 2 views of the chest were obtained. FINDINGS: The cardiomediastinal silhouette is within normal limits. The lungs are well expanded. Mild bronchial wall thickening in bilateral lower lungs. There is no focal consolidation, edema, or effusion. No pneumothorax. No acute osseous abnormality. XR/XR chest 2V IMPRESSION: Mild bronchial wall thickening can be seen with a small airway process such as asthma or atypical/viral infections. Electronically signed by: Jesús Souza MD 06/17/2025 11:20 AM DARREN External Record Review External record reviewed: Inpatient record, Office record and Outpatient record Prescription Management I considered prescription management with: Antibiotic Chronic Conditions Patient?s care impacted by: Other (COPD) Social Determinants Patient?s care significantly limited by Social Determinants of Health including: Other Social Determinant of Health Critical Care Time Critical Care Time Critical Care Time: Yes Total Critical Care Time: 45 Attestation: Critical care time in the amount of 45 minutes has been provided to the patient in terms of direct patient care, frequent reevaluation, creview and interpretation of medical data and results, and management of potentially life-threatening conditions. This is all outside of any medical procedures. Discharge Plan Discharge Clinical Impression: COPD exacerbation Patient Disposition: Home, Self-Care Instructions: COPD (Chronic Obstructive Pulmonary Disease) (ED) Additional Instructions: You were evaluated in the ED today for your breathing and cough. Your blood work is reassuring. Your chest xray shows an infection of your airways. Your symptoms improved with medications today. I am treating you with an antibiotic - doxycycline. take this as prescribed and to completion. On doxycycline, do not take pills immediately before going to bed and swallow pills with plenty of water. Avoid direct sunlight, iron, antacids, and Pepto Bismol. Call your provider if you develop new ringing in your ears, new problems hearing, dizziness, difficulty swallowing, rash, abdominal discomfort, nausea, or diarrhea. I am also sending a steroid, prednisone, to your pharmacy. Take this as prescribed x5 days. As discussed, the EKG of your heart shows a rhythm called atrial fibrilation . see home instructions. Your rate appears well controlled and you are already on a blood thinner. Nonetheless, you need to follow up with Cardiology. I have provided you with a referral. Call them to establish care. Follow up with your primary care provider. Return with any new or worsening symptoms. In the case of an emergency call 911. Prescriptions: New doxycycline hyclate 100 mg tablet 100 mg PO BID 7 Days Qty: 14 0RF prednisone 20 mg tablet 40 mg PO DAILY 5 Days Qty: 10 0RF guaifenesin 200 mg/5 mL liquid 200 mg PO Q4H PRN (Reason: cough) Qty: 118 0RF No Action atenolol 25 mg tablet 25 mg PO DAILY sulindac 150 mg tablet 150 mg PO BID Myrbetriq 25 mg tablet extended release 24 hr 25 mg PO DAILY atorvastatin 10 mg tablet 10 mg PO DAILY spironolactone 50 mg tablet 50 mg PO DAILY bupropion HCl 150 mg tablet extended release 24 hr 150 mg PO DAILY estradiol 0.01 % (0.1 mg/gram) cream vaginal clopidogrel 75 mg tablet 75 mg PO DAILY hydroxyzine HCl 25 mg tablet 25 mg PO BEDTIME PRN (Reason: insomnia) mirtazapine 7.5 mg tablet 7.5 mg PO BEDTIME Referrals: [facility] [Provider Group] Referral Note: New onset AFib [facility] [Provider Group, Pulmonology] Stephen Kapoor III, MD [Primary Care Provider, Medical] Interventions: ED Discharge Assessment Last Done: 06/17/25 14:16 Discharge Date/Time: 06/17/25 14:17 Print Language: Kiswahili
[2025-06-17 11:21] LABS: MANUAL DIFF FLAG NO
[2025-06-17 11:26] LABS: Hematocrit 44.9 % (37.0-47.0); Hemoglobin 14.3 g/dl (12.0-16.0); INTERNATIONAL NORM RATIO 1.1 (0.9-1.1); Imm Gran Abs Auto 0.03 X10*3/uL (0.00-0.03); Imm Gran Pct Auto 0.3 % (0.0-0.4); Lymphocytes Absolute Auto 1.6 X10*3/uL (1.2-4.9); Mean Corpuscular HGB Conc 31.8 g/dl (31.0-35.0); Mean Corpuscular Hemoglobin 28.9 pg (27.0-33.0); Mean Corpuscular Volume 90.9 fL (80.0-98.0); NRBC Abs Auto 0.000 X10*3/uL (0.0-0.012); NRBC Pct Auto 0.0 /100WBC (0.0-0.2); Platelet Count 335 X10*3/uL (160-400); Prothrombin Time 13.8 SEC (11.2-13.5); Red Blood Count 4.94 X10*6/uL (4.20-5.50); White Blood Count 8.8 X10*3/uL (4.8-10.8)
[2025-06-17 11:35] LABS: Alanine Aminotransferase 13 U/L (0-31); Albumin Level 4.6 g/dL (3.5-5.0); Alkaline Phosphatase 84 U/L (39-117); Anion Gap 14 (12-20); Aspartate Amino Transferase 21 U/L (5-31); Blood Urea Nitrogen 11 mg/dL (9-16); Calcium 9.9 mg/dL (8.4-10.2); Carbon Dioxide 25 mmol/L (22-29); Chloride 107 mmol/L (96-108); Creatinine Clr Calc Pharmacy 39.9; Estimated Glomerular Filt Rate 47; Potassium 4.4 mmol/L (3.3-5.1); Sodium 142 mmol/L (135-145); Total Protein 7.7 g/dL (6.5-8.0)
--- NOTE | 2025-06-17 11:38 | ECG_ITS ---
Test Reason : SOB Blood Pressure : */* mmHG Vent. Rate : 61 BPM Atrial Rate : * BPM P-R Int : * ms QRS Dur : 66 ms QT Int : 440 ms P-R-T Axes : * 34 68 degrees QTcB Int : 442 ms Normal sinus rhythm with Sinus Arrhythmia Septal infarct (cited on or before 14-Aug-2017) Abnormal ECG When compared with ECG of 14-Aug-2017 16:02, QT has shortened Referred By: Denise Rasmussen Electronically Signed By: BRITTANY LOPEZ MD
[2025-06-17] MEDS: guaiFENesin 200 MG/10 ML 10 ML LIQUID PO (11:46)
[2025-06-17] MEDS: Magnesium Sulfate/H2O 2 GM/50 ML PIGGYBACK IV (11:46)
[2025-06-17] MEDS: Albuterol Sulfate 5 MG, Albuterol/Iprat 2.5/0.5MG 3 ML 3 ML INHALE (11:47)
[2025-06-17 11:49] VITALS: PULSE 68; RESP 20; O2SAT 97
[2025-06-17 11:59] LABS: Resp Syncy Virus RNA Qual PCR NEGATIVE (Negative); SARS COV2 PCR INHOUSE NEGATIVE (Negative)
[2025-06-17 12:11] LABS: NT Pro B Type Natriuretic Pept 113.5 pg/mL (<300)
--- OUTSIDE RECORDS SUMMARY | 2025-06-17 12:17 | XMS_ITS | Encounter Summary ---
Author Organization [facility] Address [address] [place] [address] Care Team Providers Care Golf Club Repairer Name Role Phone Stephen Kapoor MD Primary Care Provider [phone] Reason for Visit * Reason Onset Date Comments Results 06/17/2025 Encounter Details Date Type Department Care Team ([facility] Contact Info) Description 06/17/2025 Telephone Adult Medicine [address] [phone] Stephen Kapoor MD [address] [place] [address] Social History Tobacco Use Types Packs/Day Years Used Date Smoking Tobacco: Former Cigarettes 0.5 58.5 S tarted: 1966 Smokeless Tobacco: Never Alcohol Use Standard Drinks/Week Comments No 0 (1 standard drink = 0.6 oz pur e alcohol) Comments No Sex and Gender Information Value Date Recorded Sex Assigned at Female 06/02/2024 10:39 AM EST Legal Sex Female 10:07 PM EST Gender Identity Not on file Sexual Orientation Straight 06/02/2024 10 :39 AM EST documented as of this encounter Progress Notes * Giuliana Han MA - 06/17/2025 12:05 PM EST I called pt to advise her that her PFT test showed COPD and that she has been referred to Pulmonary. It just so happens that pt has a cough and is at [facility] ER * Stephen Kapoor MD - 06/17/2025 11:51 AM EST Please inform patient pfts c/w copd and I have referred here to pulm * Anne Maravilla - 06/17/2025 9:21 AM EST Inform patient: ANY URGENT OR ABNORMAL RESULTS WIILL RESULT IN A CALL BACK TO THE PATIENT ANDER. Type of test: :Pulmonology Breathing Test Date test was performed: 06/10/2025 Where was the test performed: [facility] Who ordered this test?: Dr. Kapoor Is the doctor here today?: yes Can the message wait until the doctor returns?: yes IF PATIENT'S PCP IS NOT IN INSTRUCT PATIENT THAT THEY WILL RECEIVE A CALL BACK WHEN THE PCP IS IN THE OFFICE NEXT. documented in this encounter Plan of Treatment Upcoming Encounters Date Type Department Care Team (Late st Contact Info) Description 07/20/2025 1:00 PM EST Office Visit Adult Medicine [facility] - [address] [phone] Neli Jack, RN INTERVENTIONAL [address] [place], [place] 11/17/2025 8:30 AM EDT Office Visit Urogynecology - [address] [phone] Ashley Castellanos MD [address] [place] [address] 05/19/2026 9:15 AM EST Ancillary Procedure [facility] - [address] [place] [id number] documented as of this encounter Visit Diagnoses Not on filedocumented in this encounter Additional Health Concerns Assessment Noted Time PHQ-9 Depression Total Score: 0 09/28/19 25 2:30 PM EDT A fall risk assessment has been complete d for the patient 10/02/2024 3:13 PM EDT documented as of this encounter Care Teams Golf Club Repairer Relationship Specialty Start Date End Date Stephen Kapoor MD [address] [place] [address] PCP - General Internal Medicine 04/24/24 documented as of this encounter
--- OUTSIDE RECORDS SUMMARY | 2025-06-17 12:17 | XMS_ITS | Encounter Summary ---
Author Organization [facility] Address [address] [place] [address] Care Team Providers Care Heel Splitter Name Role Phone Stephen Kapoor MD Primary Care Provider [phone] Reason for Visit * Reason Onset Date Comments Cough 06/17/2025 Encounter Details Date Type Department Care Team (Late st Contact Info) Description 06/17/2025 Nurse Triage Adult Medicine [address] [phone] Stephen Kapoor MD [address] [place] [address] Social History Tobacco Use Types Packs/Day Years [...] as of this encounter Progress Notes * Sadie Guevara RN - 06/17/2025 9:34 AM EST Pt was seen in the office on 04/16/25; Patient with wheezing dyspnea coughing sputum production suspicious for copd I will order xray r/o intra pulmonary etiologies will order pfts will trial combivent. Pt had a pulmonary function test on 06/10/25: INTERPRETATION: This pulmonary function test shows moderate obstructive changes with gas trapping and diffusion impairment. The findings could be related to COPD/emphysema She was instructed to go to the ER for further evaluation and treatment. She is in agreement with this plan and states she will go to [facility] ER. She was advised to call for a follow up appointment after she is released from the hospital. Reason for Disposition [1] MODERATE difficulty breathing (e.g., speaks in phrases, SOB even at rest, pulse 100-120) AND [2] still present when not coughing Answer Assessment - Initial Assessment Questions 1. ONSET: When did the cough begin? > 2 months 2. SEVERITY: How bad is the cough today? She rates the cough as 10/10 3. SPUTUM: Describe the color of your sputum (e.g., none, dry cough; clear, white, yellow, green) She states the cough is mostly dry but at times it is productive and the sputum can be clear to yellow. 4. HEMOPTYSIS: Are you coughing up any blood? If Yes, ask: How much? (e.g., flecks, streaks, tablespoons, etc.) No hemoptysis 5. DIFFICULTY BREATHING: Are you having difficulty breathing? If Yes, ask: How bad is it? (e.g., mild, moderate, severe) She reports shortness of breath with activity. Her cough is worse at night, wakes her up and prevents her from sleeping. 6. FEVER: Do you have a fever? If Yes, ask: What is your temperature, how was it measured, and when did it start? No fever. 7. CARDIAC HISTORY: Do you have any history of heart disease? (e.g., heart attack, congestive heart failure) No 8. LUNG HISTORY: Do you have any history of lung disease? (e.g., pulmonary embolus, asthma, emphysema) COPD and emphysema 9. PE RISK FACTORS: Do you have a history of blood clots? (or: recent major surgery, recent prolonged travel, bedridden) She states she has a stent in her leg 10. OTHER SYMPTOMS: Do you have any other symptoms? (e.g., runny nose, wheezing, chest pain) Wheezing 11. : Is there any chance you are ? When was your last menstrual period? No pt is 69 12. TRAVEL: Have you traveled out of the country in the last month? (e.g., travel history, exposures) She states the combivent is not helpful at alleviating her symptoms. She denies travel. Protocols used: Cough - Acute Oef-Gpukngqhgs-N-AH * Anne Maravilla - 06/17/2025 9:23 AM EST Patient call requires triage: Symptoms patient is presenting: Patient states she completed breathing test on 06/10/2025 at [facility].Difficulty breathing and shortness of breath, constant cough and wheezing. How long has patient had these symptoms?: A while For ALL patients calling to schedule any appointment (routine, sick visit, follow up, consult, etc.) in the outpatient setting please ask the following questions: Do you have fever of higher than 101, sore throat with difficulty swallowing or severe shortness ofbreath? no If YES to any of these above symptoms, send a message to triage and do not book. Red dot. If no, an audio or video visit should be booked. Have you had close contact with someone with Coronavirus in the last 14 days? no Have you traveled abroad? no Have you traveled recently to another state outside of [place], [place], [place], [place], [place], [place], [place]? no o If yes, did you quarantine for 14 days or have a negative covid test? no If yes to any of the above, patient is not to be scheduled in office until after 14 day quarantine or negative covid test. If pain or injury related was it due to an accident at work or from a motor vehicle accident? If yes, date of accident/Injury: No If yes, gather 3rd constitution party insurance information Third Constitution Party Information: not applicable PCP: Stephen Kapoor MD Payor: [employer] MEDICARE ADVANTAGE / Plan: [employer] / Product Type: *No Product type* / documented in this encounter Plan of Treatment Upcoming Encounters Date Type Department Care Team (Late st Contact Info) Description 07/20/2025 1:00 PM EST Office Visit [facility] Medicine [place] [facility] [place] [address] [place] [address] Neli Jack NP [address] [place], [place] 11/17/2025 8:30 AM EDT Office Visit Urogynecology - [address] [phone] Ashley Castellanos MD [address] [facility] [address] [place] [address] 05/19/2026 9:15 AM EST Ancillary Procedure [facility] - [address] [place] [address] documented as of this encounter Visit Diagnoses Not on filedocumented in this encounter Additional Health Concerns Assessment Noted Time PHQ-9 Depression Total Score: 0 09/28/19 2:30 PM EDT A fall risk assessment has been complete d for the patient 10/02/2024 3:13 PM EDT documented as of this encounter Care Teams Heel Splitter Relationship Specialty Start Date End Date Stephen Kapoor MD [address] [place] [address] PCP - General Internal Medicine 04/24/24 documented as of this encounter
--- OUTSIDE RECORDS SUMMARY | 2025-06-17 12:17 | XMS_ITS ---
Author Name [facility] Organization Unknown History of Medication Use Medication Directions Dispensed Refills Start Date End Date Stat us atenoloL (TENORMIN) 25 mg tablet TAKE ONE TABLET BY MOUTH EVERY DAY 10/13/2024 active atorvastatin (LIPITOR) 10 mg tablet Take 1 tablet (10 mg total) by mouth 1 (one) time each day. TAKE 1 TABLET BY MOUTH DAILY 10/02/2024 active buPROPion XL (WELLBUTRIN XL) 150 mg 24 hr tablet Take 1 tablet (150 mg total) by mouth 1 (one) time each day. TAKE 1 TABLET BY MOUTH EVERY MORNING 10/02/2024 active clopidogreL (PLAVIX) 75 mg tablet Take 1 tablet (75 mg total) by mouth 1 (one) time each day. Take 1 Tablet by mouth daily. 10/02/2024 active pramipexole (MIRAPEX) 0.125 mg tablet Take 1 tablet (0.125 mg total) by mouth at bedtime. 10/02/2024 active polyethylene glycol (PEG) 17 gram/dose oral powder Take 17 g by mouth 1 (one) time each day. Please take daily after surgery 07/15/2024 active methenamine hippurate (HIPREX) 1 gram tablet Take 1 tablet (1 g total) by mouth 2 (two) times a day for 5 days. 06/03/2024 06/09/2024 active vibegron (GEMTESA) 75 mg tablet tablet Take 1 tablet (75 mg total) by mouth 1 (one) time each day. 05/26/2024 10/15/2024 active acetaminophen (TYLENOL) 500 mg tablet Take 2 tablets (1,000 mg total) by mouth every 8 (eight) hours if needed for mild pain. Please take two tablets every 8 hours for the first few days after surgery, then as needed 05/26/2024 active ibuprofen (ADVIL,MOTRIN) 800 mg tablet Take 1 tablet (800 mg total) by mouth every 8 (eight) hours if needed for mild pain. Take 800mg every 8 hours for the first few days after surgery - stagger with acetaminophen - then as needed 05/26/2024 active traMADoL (ULTRAM) 50 mg tablet Take 1 tablet (50 mg total) by mouth every 8 (eight) hours if needed for severe pain. Max Daily Amount: 150 mg 05/26/2024 active mirtazapine (REMERON) 7.5 mg tablet TAKE 1 TABLET BY MOUTH AT BEDTIME 01/10/2024 active atorvastatin (LIPITOR) 10 mg tablet TAKE 1 TABLET BY MOUTH DAILY 01/01/2024 active buPROPion XL (WELLBUTRIN XL) 150 mg 24 hr tablet TAKE 1 TABLET BY MOUTH EVERY MORNING 01/01/2024 active spironolactone (ALDACTONE) 50 mg tablet TAKE 1 TABLET BY MOUTH DAILY 12/11/2023 active atenoloL (TENORMIN) 25 mg tablet Take 1 Tablet by mouth daily. 10/03/2023 active clopidogreL (PLAVIX) 75 mg tablet Take 1 Tablet by mouth daily. 10/03/2023 active lactulose (CHRONULAC) solution Take 15-30 mL by mouth daily (with breakfast). 04/23/2023 active estradioL (ESTRACE) 0.01 % (0.1 mg/gram) vaginal cream Please use 0.5g (a pea-sized amount) on your finger and place inside the vagina for 2 weeks at night, and then decrease to twice a week at night (Mondays and ) 04/04/2023 active solifenacin (VESICARE) 5 mg tablet Take by mouth. Take 2 Tablets by mouth daily. - Oral active sulindac (CLINORIL) 150 mg tablet Take 1 tablet (150 mg total) by mouth if needed for mild pain. active Problems Problem Status Onset Date Problem Type Date of Resolution Source DJD (degenerative joint disease), lumbar active 2012-10-16 ProblemAct [facility] Alcoholic cirrhosis of liver with ascites (CMS/HCC V24, CMS/HCC V28) active 2017-08-28 ProblemAct [facility] Osteopenia active 2021-06-03 ProblemAct [facility] Fatty liver active 2013-02-04 ProblemAct [facility] Essential hypertension, benign active 2024-03-27 ProblemAct [facility] Urinary urgency active EncounterDiagnosisAct [facility] Depression active 2024-03-27 ProblemAct [facility] GERD (gastroesophageal reflux disease) active 2024-03-27 ProblemAct [facility] Cocaine abuse ([facility] V24, [facility] V28) active 2013-02-04 ProblemAct [facility] Urge incontinence of urine active 2024-05-28 ProblemAct [facility] PAD (peripheral artery disease) ([facility] V24) active 2024-09-26 ProblemAct [facility] ETOH abuse active 2013-02-04 ProblemAct [facility] Urinary frequency active EncounterDiagnosisAct [facility] Nocturia active EncounterDiagnosisAct [facility] High cholesterol active 2012-10-16 ProblemAct [facility] Immunizations Vaccine Date Source Lot Number Status Pfizer SARS-CoV-2 COVID-19, mRNA, LNP-S, preservative free 12/10/2020 [facility] [id number] completed Zoster recombinant (Shingrix ) 19yo and older 06/30/2020 [facility] [id number] completed Pneumococcal conjugate 13 va lent (Prevnar 13, PCV13) 2mo and older 04/30/2020 [facility] [id number] complet ed Zoster recombinant (Shingrix ) 19yo and older 04/30/2020 [facility] [id number] completed Pneumococcal polysaccharide 23 valent (Pneumovax 23) 2yo and older 03/06/2018 [facility] [id number] com pleted Zoster recombinant (Shingrix ) 19yo and older 02/01/2018 [facility] [id number] completed Tdap Tetanus diptheria acell ular pertussis (Boostrix; Adacel) 7yo and older 12/31/2015 [facility] [id number] completed
--- OUTSIDE RECORDS SUMMARY | 2025-06-17 12:17 | XMS_ITS | Clinical Summary ---
Author Organization [facility] Address [address] [place] [phone] Phone Care Team Providers Care Pet Counselor Name Role Phone Stephen Kapoor MD Primary Care Provider Allergies No known active allergies Medications lactulose (CHRONULAC) solution Take 15-30 mL by mouth daily (with breakfast). 3 Active mirtazapine (REMERON) 7.5 mg tablet TAKE 1 TABLET BY MOUTH AT BEDTIME 4 Active acetaminophen (TYLENOL) 500 mg tablet Take 2 tablets (1,000 mg total) by mouth every 8 (eight) hours if needed for mild pain. Please take two tablets every 8 hours for the first few days after surgery, then as needed 60 tablet 1 4 Active ibuprofen (ADVIL,MOTRIN) 800 mg tablet Take 1 tablet (800 mg total) by mouth every 8 (eight) hours if needed for mild pain. Take 800mg every 8 hours for the first few days after surgery - stagger with acetaminophen - then as needed 60 tablet 1 4 Active sulindac (CLINORIL) 150 mg tablet Take 1 tablet (150 mg total) by mouth if needed for mild pain. Active polyethylene glycol (PEG) 17 gram/dose oral powder Take 17 g by mouth 1 (one) time each day. Please take daily after surgery 765 g 1 5 Active atorvastatin (LIPITOR) 10 mg tablet Take 1 tablet (10 mg total) by mouth 1 (one) time each day. TAKE 1 TABLET BY MOUTH DAILY 90 tablet 2 5 Active buPROPion XL (WELLBUTRIN XL) 150 mg 24 hr tablet Take 1 tablet (150 mg total) by mouth 1 (one) time each day. TAKE 1 TABLET BY MOUTH EVERY MORNING 90 tablet 2 5 Active estradioL (ESTRACE) 0.01 % (0.1 mg/gram) vaginal cream Insert 0.5 g into the vagina 1 (one) time each day. Please place 0.5g (a pea-sized amount) on your finger and place inside the vagina twice a week at night 42.5 g 3 5 Active hydrOXYzine HCL (ATARAX) 10 mg tablet TAKE ONE TABLET BY MOUTH THREE TIMES A DAY NEEDED FOR FOR ANXIETY 60 tablet 5 Active pramipexole (MIRAPEX) 0.125 mg tablet TAKE ONE TABLET BY MOUTH DAILY AT BEDTIME 90 tablet 5 Active atenoloL (TENORMIN) 25 mg tablet TAKE ONE TABLET BY MOUTH EVERY DAY 90 tablet 5 Active vibegron (Gemtesa) 75 mg tablet tabletIndicati ons:Urge incontinence,U rinary urgency,Urinar y frequency,Noct uria Take 1 tablet (75 mg total) by mouth 1 (one) time each day. 90 tablet 2 5 Active QUEtiapine (SEROquel) 25 mg tablet Take 0.5 tablets (12.5 mg total) by mouth at bedtime. 30 tablet 1 5 10/14/19 26 Active ipratropium-al buteroL (COMBIVENT RESPIMAT) 20-100 mcg/actuation inhaler Inhale 1 puff by mouth 4 (four) times a day if needed for wheezing or shortness of breath (coughing). 14.7 g 1 5 04/16/20 26 Active clopidogreL (PLAVIX) 75 mg tablet TAKE ONE TABLET BY MOUTH EVERY DAY 90 tablet 1 5 Active spironolactone (ALDACTONE) 50 mg tablet TAKE ONE TABLET BY MOUTH EVERY DAY 90 tablet 1 5 Active Active Problems Problem Noted Date Diagnosed Date Claudication 03/13/2025 PAD (peripheral artery disease) 09/26/2024 Assessment & Plan (10/02/2024 3:41 PM EDT): Claudication of left lower extremity 09/26/2024 Urge incontinence of urine 05/28/2024 Assessment & Plan (10/02/2024 3:41 PM EDT): Orders: Ambulatory referral to Urogynecology; Future PVD (peripheral vascular disease) 05/28/2024 Overview (05/28/2024): s/p stent Depression 03/27/2024 Primary hypertension 03/27/2024 Assessment & Plan (10/02/2024 3:41 PM EDT): GERD (gastroesophageal reflux disease) Osteopenia 06/03/2021 Alcoholic cirrhosis of liver with ascites 2017 Overview (03/27/2024): Sober 2+ years. Follows with [facility]. No longer on Lasix. LFTs have normalized. Assessment & Plan (10/02/2024 3:41 PM EDT): Orders: Hepatic function panel; Future Ambulatory referral to Gastroenterology; Future Cocaine abuse 02/04/2013 ETOH abuse 02/04/2013 Fatty liver 02/04/2013 DJD (degenerative joint disease), lumbar 013 High cholesterol 10/16/2012 Assessment & Plan (10/02/2024 3:41 PM EDT): Encounters Date Type Department Care Team Description 06/17/2025 Nurse Triage Adult Medicine [address] [phone] Stephen Kapoor MD 06/17/2025 Telephone Adult Medicine [address] [phone] Stephen Kapoor MD 06/10/2025 1:09 PM EST - 06/10/2025 11:59 PM EST Hospital Encounter [facility] Pulmonary [address] [place] [phone] Discharge Disposition: Home or Self Care 05/07/2025 2:12 PM EST - 05/07/2025 11:59 PM EST Hospital Encounter [facility] CT Scan [address] [place] [phone] PAD (peripheral artery disease) ([facility]/HCC V24) Discharge Disposition: Home or Self Care 04/16/2025 3:45 PM EDT - 04/16/2025 11:59 PM EDT Hospital Encounter [address] [phone] Shortness of breath; Wheezing Discharge Disposition: Home or Self Care 04/16/2025 3:30 PM EDT Office Visit Adult Medicine [address] [phone] Stephen Kapoor MD Primary hypertension (Primary Dx); High cholesterol; Encounter for long-term (current) use of medications; Stage 3a chronic kidney disease (CMS/HCC V24, CMS/HCC V28); Shortness of breath; Wheezing; Subacute cough; Primary insomnia 04/16/2025 Results Follow-Up Adult Medicine [address] [phone] Stephen Kapoor MD 04/16/2025 Telephone Adult [address] [phone] Stephen Kapoor MD 04/13/2025 10:30 AM EDT Office Visit Vascular Surgery [facility] [address] [place] [phone] Torri Ross PA PAD (peripheral artery disease) (CMS/HCC V24) (Primary Dx) 03/24/2025 12:00 PM EDT - 03/24/2025 1:00 PM EDT Surgery [facility] Cardiac Rehab Office Coordinator [address] [place] [phone] Darian Berrios MD Angiography lower ext left [[id number] (CPT )] 03/24/2025 11:03 AM EDT - 03/24/2025 11:59 PM EDT Hospital Encounter [facility] Cardiac Rehab Office Coordinator [address] [place] [phone] Darian Berrios MD Claudication ([facility] V24) Discharge Disposition: Home or Self Care from Last 3 Months Immunizations Immunization Administration Dates Next Due Pfizer SARS-CoV-2 COVID-19, mRNA, LNP-S, preservative free 12/10/2020 Pneumococcal conjugate 13 va lent (Prevnar 13, PCV13) 2mo and older 04/30/2020 Pneumococcal polysaccharide 23 valent (Pneumovax 23) 2yo and older 03/06/2018 Tdap Tetanus diptheria acell ular pertussis (Boostrix; Adacel) 7yo and older 12/31/2015 Zoster recombinant (Shingrix ) 19yo and older 06/30/2020,04/30/2020,02/01/2018 Surgical History Surgery Date Site/Laterality Comments WRIST SURGERY internal fixation BLADDER SUSPENSION TONSILLECTOMY TUBAL LIGATION BREAST BIOPSY Left many years ago not sure whne CHOLECYSTECTOMY Medical History Medical History Date Comments GERD (gastroesophageal reflux disease) Essential hypertension, benign Depression Alcoholic cirrhosis of liver with ascites ([facility] V24, [facility] V28) 08/28/2017 Sober 2+ years. Fol lows with [facility] GI. No longer on Lasix. LFTs have normalized. DJD (degenerative joint dise ase), lumbar 10/16/2012 Cocaine abuse ([facility] V24, [facility] V28) 02/04/2013 ETOH abuse 02/04/2013 Fatty liver 02/04/2013 High cholesterol 10/16/2012 Osteopenia 06/03/2021 Family History Medical History Relation Name Comments No Known Problems Daughter No Known Problems Father No Known Problems Maternal Grandfather No Known Problems Maternal Grandmother Diabetes Mother No Known Problems Mother's side 1 Heart attack Mother's side 2 No Known Problems Other No Known Problems Paternal Grandfather No Known Problems Paternal Grandmother No Known Problems Sister Breast cancer Neg Hx Colon cancer Neg Hx Ovarian cancer Neg Hx Relation Name Status Comments Daughter Father Maternal Grandfather Maternal Grandmother Mother Mother's side 1 Mother's side 2 Other Paternal Grandfather Paternal Grandmother Sister Social History Tobacco Use Types Packs/Day Years [...] Orientation Straight 06/02/2024 10 :39 AM EST Obstetrics History * This document contains information received from the source organization and may not represent a complete record from that organization. Para Term AB IAB SAB Ectopic Multiple Livin g Live Births 4 3 3 0 0 0 3 3 Date Outcome GA Total Labor Labor/2nd/3rd Weight Sex Type Anes PTL Ny A1 A5 Name Clin 1970 Term Vag-S pont Living 1977 Term Vag-S pont Living 1979 Term Vag-S pont Living Last Filed Vital Signs Vital Sign Reading Time Taken Comments Blood Pressure 112/68 04/16/2025 3:20 PM EDT Pulse 72 04/16/2025 3:20 PM EDT Temperature 36.4 C (97.6 F) 04/16/2025 3:20 PM EDT Respiratory Rate 16 04/16/2025 3:20 PM EDT Oxygen Saturation 95% 04/16/2025 3:20 PM EDT Inhaled Oxygen Concentration - - Weight 67.1 kg (148 lb) 04/16/2025 3:20 PM EDT Height 157.5 cm (5' 2 ) 04/16/2025 3:20 PM EDT Body Mass Index 27.07 04/16/2025 3:20 PM EDT Plan of Treatment Upcoming Encounters Date Type Department Care Team (Late st Contact Info) Description 07/20/2025 1:00 PM EST Office Visit Adult Medicine [facility] [address] [place], [place] [phone] Neli Jack NP [address] [place] [address] 11/17/2025 8:30 AM EDT Office Visit Urogynecology - [place] [address] [place] [phone] Ashley Castellanos MD [address] [place] [address] [address] [place] [address] 05/19/2026 9:15 AM EST Ancillary Procedure [facility] [address] [place] [address] [place] [phone] Health Maintenance Due Date Last Done Comments Hepatitis A Vaccines (1 of 2 - Risk 2-dose series) 1972 Social Influencers of Health Screening 06/03/2022 Breast Cancer Screening 03/22/2023 03/22/2021, 07/11 Influenza Vaccine (#1) 2025 Pneumococcal Vaccine: 50+ Years (3 of 3 - PCV20 or PCV21) 04/30/2025 04/30/2020, 03/06/2018 Falls Risk Assessment 10/02/2025 10/02/2024 Medicare Annual Wellness Visit 10/02/2025 10/02/2024 COVID-19 Vaccine ( season) 2025 04/10/2025, 03/25/2024, 03/22/2023, Additional history exists DTaP,Tdap,and Td Vaccines (2 - Td or Tdap) 12/30/2025 12/31/2015 Hypertension/CHF/CAD Annual BMP Blood Test 04/16/2026 04/16/2025, 03/24/2025, 12/30/2024, Additional history exists Colorectal Cancer Screening: Colonoscopy 10/21/2028 10/21/2018 Cholesterol Screening (Lipid Panel) 04/16/2030 04/16/2025, 05/28/2024, 02/06/2024, Additional history exists Osteoporosis Screening (Bone Density Screening) 03/22/2031 03/22/2021 Hepatitis C Screening Completed 09/20/2017 RSV Immunization Adult Patients Completed 06/01/2023 Zoster Vaccines Completed 06/27/2024, 1006/2023, 06/30/2020, Additional history exists Depression Screening Completed 09/27/2024, 10/03/19 24 HIB Vaccines Aged Out No longer eligi ble based on patient's age to complete this topic HPV Vaccines Aged Out No longer eligi ble based on patient's age to complete this topic Hepatitis B Vaccines Aged Out No long er eligible based on patient's age to complete this topic IPV Vaccines Aged Out No longer eligi ble based on patient's age to complete this topic MMR Vaccines Aged Out No longer eligi ble based on patient's age to complete this topic Meningococcal ACWY Vaccine Aged Out N o longer eligible based on patient's age to complete this topic Meningococcal B Vaccine Aged Out No l onger eligible based on patient's age to complete this topic RSV Immunization Patients Under 20 months Aged Out No longer eligible based on patient's age to complete this topic Varicella Vaccines Aged Out No longer eligible based on patient's age to complete this topic Medical Devices Implanted Type Area Support Teacher Device Identifier Shelf Expiration Date Model / Serial / Lot Sling Surg Adv Fit Ultra - Sn/A - [id number] Implanted:Qty: 1 on 06/02/2024 by Ashley Castellanos MD at [facility] Surgical Mesh Sling Implants N/A: Vagina 29West [id number] 02/17/2027 [id number] 160 / N/A / [id number] Procedures Procedure Name Priority Date/Time Associated Diagnosis Comments HC SPIROMETRY BRONCHODILATION RESPONSIVENESS PRE/POST BRONCHODILATOR ADMINISTRATION Routine 06/10/2025 2:14 PM EST Shortness of breath Wheezing CT ANGIO ABDOMINAL AORTA W RUNOFF STAT 05/07/2025 2:55 PM EST PAD (peripheral artery disease) ([facility] V24) CREATININE, SERUM Routine 04/16/2025 4:2 8 PM EDT PAD (peripheral artery disease) ([facility] V24) BUN Routine 04/16/2025 4:28 PM EDT PAD (peripheral artery disease) ([facility] V24) LIPID PANEL WITH REFLEX TO DIRECT LDL Routine 04/16/2025 4:28 PM EDT High cholesterol ALANINE AMINOTRANSFERASE Routine 025 4:28 PM EDT Encounter for long-term (current) use of medications ASPARTATE AMINOTRANSFERASE Routine 04/16/2025 4:28 PM EDT Encounter for long-term (current) use of medications XR CHEST 2 VIEWS Routine 04/16/2025 4:07 PM EDT Shortness of breath Wheezing POCT ACTIVATED CLOTTING TIME, KAOLIN Routine 03/24/2025 2:51 PM EDT POCT ACTIVATED CLOTTING TIME, KAOLIN Routine 03/24/2025 2:32 PM EDT POCT ACTIVATED CLOTTING TIME, KAOLIN Routine 03/24/2025 2:11 PM EDT ANGIOGRAPHY LOWER EXT LEFT Routine 03/24/2025 1:46 PM EDT Claudication (CMS/HCC V24) CBC WITH AUTO DIFFERENTIAL Routine 03/24/2025 11:30 AM EDT ACTIVATED PARTIAL THROMBOPLASTIN TIME Routine 03/24/2025 11:30 AM EDT PROTHROMBIN TIME WITH INR Routine 03/24/2025 11:30 AM EDT CBC AND DIFFERENTIAL Routine 03/24/2025 11:30 AM EDT BASIC METABOLIC PANEL Routine 03/24/2025 11:30 AM EDT DEPRESSION SCREENING Routine 10/03/2023 DXA BONE DENSITY STUDY 1+ SITS AXIAL SKEL Routine 03/22/2021 12:43 PM EDT Encounter for screening for osteoporosis SCREENING MAMMOGRAPHY BI 2-VIEW BREAST INC CAD Routine 03/22/2021 11:21 AM EDT Encounter for screening mammogram for malignant neoplasm of breast COLONOSCOPY Routine 10/21/2018 HEPATITIS C SCREENING Routine 09/20/2017 from Last 3 Months or Most Recently Relevant to Health Maintenance Results * Pulmonary function testing: Flow Volume Loop, Spirometry with Bronchodilator, Spirometry (06/10/2025 2:14 PM EST) Narrative Florida Norris MD - 06/11/2025 4:56 PM EST Table formatting from the original result was not included. Images from the original result were not included. [facility] [address] [place] [id number] Pulmonary Functions Report Date of service: 06/10/25 Patient Name: Alba Sneed Date of : 1955 Age: 69 y.o. Gender: female Ordering Provider: Stephen Kapoor MD Diagnosis listed on Order: Shortness of breath, Wheezing Reason for Exam: Order Questions Answers Reason for Exam: wheezing cough dyspnea with hx of smoking Which PFTs would you like to perform? Flow Volume Loop,Spirometry with Bronchodilator,Spirometry SPIROMETRY: FEV1 is 61 % predicted and an FVC is 67 % predicted. The FEV1/FVC ratio is 89% of normal, no response to bronchodilators noted. LUNG VOLUMES: Total lung capacity (TLC): 83% predicted. Residual volume (RV): 106% predicted RV/TLC ratio is 128% of normal DIFFUSION CAPACITY: DLCO 42% predicted. DlCO/VA 56% of predicted COMPARISONS: INTERPRETATION: This pulmonary function test shows moderate obstructive changes with gas trapping and diffusion impairment. The findings could be related to COPD/emphysema us Stephen Kapoor MD PFT ORDERABLES Final Result * CT Angio Abdominal Aorta w Runoff (05/07/2025 2:55 PM EST) Anatomical Region Laterality Modality Body Computed Tomogra phy 05/07/2025 3:32 PM EST Impressions 05/07/2025 5:03 PM EST 1. Patent right external iliac stent. There is suggestion of a 50% stenosis at the level of the proximal stent. Appearance is similar to the prior study. 2. Linear defect in the mid right common femoral artery suggestive of a dissection flap. Appearance is similar to the prior study. 3. Prominent luminal irregularity of the proximal left external iliac artery with suggestion of an ulcerated plaque. Appearance is similar to the prior study. 4. Interval yazidism of flow in the left SFA. There is an irregular linear defect in the mid left SFA suggestive of a dissection, with moderate associated luminal stenosis. 5. The liver again appears slightly nodular in contour, a finding which could be secondary to cirrhosis. 6. Bronchial wall thickening and extensive mucous plugging at both lung bases, right greater than left. -------- FINAL REPORT -------- Dictated By: Quinn Mix Dictated Date: 05/07/2025 15:32 ET Assigned Physician: Quinn Mix Reviewed and Electronically Signed By: Quinn Mix Signed Date: 05/07/2025 17:03 ET Workstation ID: [id number] Transcribed By: Self Edit Transcribed Date: 05/07/2025 15:32 ET Narrative 05/07/2025 5:03 PM EST PROCEDURE: CT angiogram of the abdomen and pelvis with bilateral lower extremity runoff. TECHNIQUE: CT angiogram with bilateral lower extremity runoff. Multiplanar reformats were created. IV contrast dose: 120 mL ISOVUE 370. HISTORY: S/P angioplasty of left SFA with symptoms COMPARISON: 01/19/2025. Dose length product: 1191 mGy-cm. FINDINGS: VASCULATURE: Moderate hard and soft plaque throughout the abdominal aorta. No aortic aneurysm or dissection. Trace calcified plaque in the celiac vessels without associated stenosis. Mild atherosclerotic luminal irregularity with several low-grade stenoses of the SMA. SHAVON is patent. There is a mild proximal stenosis of the left main renal artery secondary to calcified plaque. No significant stenosis of the right main renal artery. Small accessory renal artery supplying the right lower pole with at least moderate origin stenosis. Right lower extremity: Multifocal hard and soft plaque in the common femoral artery with mild-moderate multifocal stenosis. There is a linear defect in the mid common femoral artery suggestive of a dissection flap. Multifocal calcified plaque in the internal iliac artery with a moderate origin stenosis and mild multifocal distal stenoses. There is a stent in the external iliac artery. Lumen is patent but there is suggestion of a stenosis at the proximal aspect of the stent, estimated at approximately 50%. Hard and soft plaque results in mild narrowing of the common femoral artery. Profunda branch is widely patent. Mild diffuse luminal irregularity of the SFA without a significant stenosis. Popliteal artery is widely patent. The anterior and posterior tibial artery are widely patent into the foot. The peroneal artery is widely patent to the level of the ankle, where it becomes small in caliber. Left lower extremity: Hard and soft plaque results in mild multifocal luminal irregularity of the common iliac artery without significant stenosis. Diffuse luminal irregularity of the internal iliac artery with a severe origin stenosis and moderate multifocal distal stenoses. Prominent luminal irregularity of the proximal external iliac artery secondary to hard and soft plaque, with suggestion of an ulcerated plaque. Calcified plaque in the common femoral artery without a significant stenosis. Profunda branch is widely patent. Multifocal atherosclerotic luminal irregularity of the SFA. There is a moderate stenosis in the proximal thigh. An irregular linear defect in the mid SFA is suggestive of a dissection, and there is moderate associated luminal stenosis. Popliteal artery is widely patent. There is mild atherosclerotic luminal irregularity of the proximal anterior tibial artery. The anterior posterior tibial artery are patent into the foot. The peroneal artery is patent through the level of the ankle, where it becomes small in caliber. LUNG BASES: Dependent groundglass in the left base, likely atelectasis. Bronchial wall thickening and multifocal mucous plugging in both lower lobes, more extensive on the right than the left. CARDIAC: Mild coronary artery calcification. LIVER: Mild steatosis. The right lobe has a slightly nodular contour. There are a few stable irregular enhancing lesions which could represent small hemangiomas or other vascular anomalies. BILIARY: Cholecystectomy. No intrahepatic ductal dilatation. Mild prominence of the common duct is probably secondary to postcholecystectomy reservoir effect. There is no appreciable ductal filling defect. PANCREAS: Normal. SPLEEN: Normal. ADRENAL GLANDS: Normal. KIDNEYS: There are small areas of cortical scarring bilaterally, most prominent in the lateral interpolar region on the right. Normal appearance of the ureters. RETROPERITONEUM: No mass or adenopathy. BOWEL/MESENTERY: No obstruction or adenopathy. No mass or ascites. Scattered colonic diverticula. Normal appendix. ABDOMINAL WALL: Normal. PELVIC NODES: No adenopathy. PELVIC ORGANS: Normal. BONES: Diffusely demineralized. Mild rightward curvature of the lumbar spine with prominent endplate degenerative changes on the left at L5 on the right at L2-3. Mild degenerative changes of the hips and knees. Mild degenerative irregularity of the sacroiliac joints and pubic symphysis. There is a benign-appearing peripherally sclerotic lesion in the left calcaneus and a small bone island in the right talar dome. OTHER: No other significant findings. Procedure Note Quinn Mix MD - 05/07/2025 PROCEDURE: CT angiogram of the abdomen and pelvis with bilateral lowerextremity runoff. TECHNIQUE: CT angiogram with bilateral lower extremity runoff.Multiplanar reformats were created. IV contrast dose: 120 mL ISOVUE 370. HISTORY: S/P angioplasty of left SFA with symptoms COMPARISON: 01/19/2025. Dose length product: 1191 mGy-cm. FINDINGS: VASCULATURE: Moderate hard and soft plaque throughout the abdominal aorta. No aorticaneurysm or dissection. Trace calcified plaque in the celiac vessels without associated stenosis.Mild atherosclerotic luminal irregularity with several low-grade stenosesof the SMA. SHAVON is patent. There is a mild proximal stenosis of the left main renal artery secondaryto calcified plaque. No significant stenosis of the right main renalartery. Small accessory renal artery supplying the right lower pole withat least moderate origin stenosis. Right lower extremity: Multifocal hard and soft plaque in the commonfemoral artery with mild-moderate multifocal stenosis. There is a lineardefect in the mid common femoral artery suggestive of a dissection flap.Multifocal calcified plaque in the internal iliac artery with a moderateorigin stenosis and mild multifocal distal stenoses. There is a stent inthe external iliac artery. Lumen is patent but there is suggestion of astenosis at the proximal aspect of the stent, estimated at [id number]%. Hard and soft plaque results in mild narrowing of the common femoralartery. Profunda branch is widely patent. Mild diffuse luminalirregularity of the SFA without a significant stenosis. Popliteal arteryis widely patent. The anterior and posterior tibial artery are widelypatent into the foot. The peroneal artery is widely patent to the levelof the ankle, where it becomes small in caliber. Left lower extremity: Hard and soft plaque results in mild multifocalluminal irregularity of the common iliac artery without significantstenosis. Diffuse luminal irregularity of the internal iliac artery witha severe origin stenosis and moderate multifocal distal stenoses.Prominent luminal irregularity of the proximal external iliac arterysecondary to hard and soft plaque, with suggestion of an ulcerated plaque.Calcified plaque in the common femoral artery without a significantstenosis. Profunda branch is widely patent. Multifocal atheroscleroticluminal irregularity of the SFA. There is a moderate stenosis in theproximal thigh. An irregular linear defect in the mid SFA is suggestiveof a dissection, and there is moderate associated luminal stenosis.Popliteal artery is widely patent. There is mild atherosclerotic luminalirregularity of the proximal anterior tibial artery. The anteriorposterior tibial artery are patent into the foot. The peroneal artery ispatent through the level of the ankle, where it becomes small in caliber. LUNG BASES: Dependent groundglass in the left base, likely atelectasis.Bronchial wall thickening and multifocal mucous plugging in both lowerlobes, more extensive on the right than the left. CARDIAC: Mild coronary artery calcification. LIVER: Mild steatosis. The right lobe has a slightly nodular contour.There are a few stable irregular enhancing lesions which could representsmall hemangiomas or other vascular anomalies. BILIARY: Cholecystectomy. No intrahepatic ductal dilatation. Mildprominence of the common duct is probably secondary to postcholecystectomyreservoir effect. There is no appreciable ductal filling defect. PANCREAS: Normal. SPLEEN: Normal. ADRENAL GLANDS: Normal. KIDNEYS: There are small areas of cortical scarring bilaterally, mostprominent in the lateral interpolar region on the right. Normalappearance of the ureters. RETROPERITONEUM: No mass or adenopathy. BOWEL/MESENTERY: No obstruction or adenopathy. No mass or ascites.Scattered colonic diverticula. Normal appendix. ABDOMINAL WALL: Normal. PELVIC NODES: No adenopathy. PELVIC ORGANS: Normal. BONES: Diffusely demineralized. Mild rightward curvature of the lumbarspine with prominent endplate degenerative changes on the left at L5 onthe right at L2-3. Mild degenerative changes of the hips and knees. Milddegenerative irregularity of the sacroiliac joints and pubic symphysis.There is a benign-appearing peripherally sclerotic lesion in the leftcalcaneus and a small bone island in the right talar dome. OTHER: No other significant findings. IMPRESSION: 1. Patent right external iliac stent. There is suggestion of a 50%stenosis at the level of the proximal stent. Appearance is similar to theprior study. 2. Linear defect in the mid right common femoral artery suggestive of adissection flap. Appearance is similar to the prior study. 3. Prominent luminal irregularity of the proximal left external iliacartery with suggestion of an ulcerated plaque. Appearance is similar tothe prior study. 4. Interval yazidism of flow in the left SFA. There is an irregularlinear defect in the mid left SFA suggestive of a dissection, withmoderate associated luminal stenosis. 5. The liver again appears slightly nodular in contour, a finding whichcould be secondary to cirrhosis. 6. Bronchial wall thickening and extensive mucous plugging at both lungbases, right greater than left. -------- FINAL REPORT -------- Dictated By: Quinn Mix Dictated Date: 05/07/2025 15:32 ET Assigned Physician: Quinn Mix Reviewed and Electronically Signed By: Quinn Mix Signed Date: 05/07/2025 17:03 ET Workstation ID: [id number] Transcribed By: Self Edit Transcribed Date: 05/07/2025 15:32 [address] [facility] [address] PROCEDURES Final Re sult * (ABNORMAL) Lipid panel with reflex to direct LDL (04/16/2025 4:28 PM EDT) Cholesterol 140 0 - 200 mg/dL LAB CHEMISTRY METHOD 04/16/2025 7:21 PM EDT [facility] Triglycerides 161(H) 0 - 150 mg/dL LAB CHEMISTRY METHOD 04/16/2025 7:21 PM EDT [facility] HDL 48 >=40 mg/dL LAB CHEMISTRY METHOD 04/16/2025 7:21 PM EDT [facility] LDL Calculated 60 0 - 100 mg/dL LAB CHEMISTRY METHOD 04/16/2025 7:21 PM EDT [facility] Comment:Estimated LDL Calcul ated using equation: Total cholesterol - HDL cholesterol - (Triglycerides/5) VLDL Cholesterol Cecilio 32.2 mg/dL LAB CHEMISTRY METHOD 04/16/2025 7:21 PM EDT [facility] Non HDL Chol. (LDL+VLDL) 92 <145 mg/dL LAB CHEMISTRY METHOD 04/16/2025 7:21 PM EDT [facility] Chol/HDL Ratio 2.9 0.0 - 4.4 LAB CHEMISTRY METHOD 04/16/2025 7:21 PM EDT [facility] Blood Venous blood specimen / Unknown Venipuncture / Unknown 04/16/2025 4:28 PM EDT 04/16/2025 4:28 PM EDT Stephen Kapoor MD LAB BLOOD ORDERABLES Final Resu lt Performing Organization Address [facility]/ZIP Co de Phone Number [facility] [address] [place] [address], * (ABNORMAL) Creatinine (04/16/2025 4:28 PM EDT) Creatinine 1.19(H) 0.50 - 1.10 mg/dL LAB CHEMISTRY METHOD 04/16/2025 7:16 PM EDT [facility] eGFR 49(L) >=60 mL/min/1. 73m2 LAB CHEMISTRY METHOD 04/16/2025 7:16 PM EDT [facility] Comment:Calculation based on the Chronic Kidney Disease Epidemiology Collaboration (CKD-EPI) equation refit without adjustment for race. Blood Venous blood specimen / Unknown Venipuncture / Unknown 04/16/2025 4:28 PM EDT 04/16/2025 4:28 PM EDT [facility] LAB BLOOD ORDERABLES Final Result Performing Organization Address [facility]/ZIP Co de Phone Number [facility] [address] [place] [address], * BUN (04/16/2025 4:28 PM EDT) BUN 16 5 - 25 mg/dL LAB CHEMISTRY METHOD 04/16/2025 7:16 PM EDT [facility] Blood Venous blood specimen / Unknown Venipuncture / Unknown 04/16/2025 4:28 PM EDT 04/16/2025 4:28 PM EDT [facility] LAB BLOOD ORDERABLES Final Result Performing Organization Address [facility]/ZIP Co de Phone Number [facility] [address] [place] [address], [place] [phone] * Alanine aminotransferase (04/16/2025 4:28 PM EDT) [facility] ALT (SGPT) 40 10 - 60 unit/L LAB CHEMISTRY METHOD 04/16/2025 7:22 PM EDT [facility] Blood Venous blood specimen / Unknown Venipuncture / Unknown 04/16/2025 4:28 PM EDT 04/16/2025 4:28 PM EDT us Stephen Kapoor MD LAB BLOOD ORDERABLES Final Resu lt Performing Organization Address [facility]/ZIP Co de Phone Number [facility] [address] [place] [address], [place] [phone] * Aspartate aminotransferase (04/16/2025 4:28 PM EDT) Pathologist [facility] AST (SGOT) 26 10 - 42 unit/L LAB CHEMISTRY METHOD 04/16/2025 7:16 PM EDT [facility] Blood Venous blood specimen / Unknown Venipuncture / Unknown 04/16/2025 4:28 PM EDT 04/16/2025 4:28 PM EDT us Stephen Kapoor MD LAB BLOOD ORDERABLES Final Resu lt [facility]) [facility] [address] [place] [address], [place] [phone] * XR Chest 2 Views (04/16/2025 4:07 PM EDT) Anatomical Region Laterality Modality Body Radiographic Shavon ging 04/16/2025 5:18 PM EDT Narrative 04/16/2025 5:19 PM EDT Chest, 2 views. History shortness of breath. Wheezing. No prior chest radiographs are available for comparison. Lungs are hyperinflated. There is no pneumothorax, pleural effusions or focal consolidations. Cardiomediastinal silhouette is unremarkable. CONCLUSIONS: Hyperinflation. No acute focal abnormalities in the chest. -------- FINAL REPORT -------- Dictated By: Elizabeth Vasquez Dictated Date: 04/16/2025 17:18 ET Assigned Physician: Elizabeth Vasquez Reviewed and Electronically Signed By: Elizabeth Vasquez Signed Date: 04/16/2025 17:19 ET Workstation ID: [id number] Transcribed By: Self Edit Transcribed Date: 04/16/2025 17:18 ET Procedure Note Elizabeth Vasquez MD - 04/16/2025 Chest, 2 views. History shortness of breath. Wheezing. No prior chest radiographs are available for comparison. Lungs are hyperinflated. There is no pneumothorax, pleural effusions orfocal consolidations. Cardiomediastinal silhouette is unremarkable. CONCLUSIONS: Hyperinflation. No acute focal abnormalities in the chest. -------- FINAL REPORT -------- Dictated By: Elizabeth Vasquez Dictated Date: 04/16/2025 17:18 ET Assigned Physician: Elizabeth Vasquez Reviewed and Electronically Signed By: Elizabeth Vasquez Signed Date: 04/16/2025 17:19 ET Workstation ID: [id number] Transcribed By: Self Edit Transcribed Date: 04/16/2025 17:18 ET us Stephen Kapoor MD IMG XR PROCEDURES Final Result * (ABNORMAL) POCT activated clotting time,kaolin (03/24/2025 2:51 PM EDT) Only the most recent of3 resultswithin the time period is included. Pathologist [facility] Activated Clotting Time Kaolin 141(H) 74 - 137 sec 03/24/2025 2:53 PM EDT [facility] Blood Arterial blood specimen / Unknown 03/24/2025 2:51 PM EDT 03/24/2025 2:54 PM EDT us Darian Berrios MD LAB POINT OF CARE TE ST DOCKED DEVICE UNSOLICITED RESULTS Final Result [facility] [address] [place] [address], [place] [phone] * ANGIOGRAPHY LOWER EXT LEFT (03/24/2025 1:46 PM EDT) Anatomical Region Laterality Modality X-Ray Angiograph y Narrative 03/25/2025 7:45 AM EDT Per op note Study Details Per H&P Clinical Background Per H&P Procedure Details Per op note us Darian Berrios MD CV INVASIVE VASCULAR PROCEDURES Final Result * (ABNORMAL) CBC auto differential (03/24/2025 11:30 AM EDT) Pathologist [facility] WBC 9.6 4.8 - 10.8 K/mcL LAB HEMETOLOGY METHOD 03/24/2025 11:53 AM EDT [facility] RBC 4.70 3.80 - 4.80 M/mcL LAB HEMETOLOGY METHOD 03/24/2025 11:53 AM EDT [facility] Hemoglobin 13.6 11.5 - 16.0 g/dL LAB HEMETOLOGY METHOD 03/24/2025 11:53 AM EDT [facility] Hematocrit 42.6 35.0 - 47.0 % LAB HEMETOLOGY METHOD 03/24/2025 11:53 AM [facility] MCV 91.6 79.0 - 98.0 FL LAB HEMETOLOGY METHOD 03/24/2025 11:53 AM [facility] MCH 29.2 27.0 - 32.0 pcg LAB HEMETOLOGY METHOD 03/24/2025 11:53 AM [facility] MCHC 31.9(L) 32.0 - 37.0 g/dL LAB HEMETOLOGY METHOD 03/24/2025 11:53 AM [facility] RDW 14.5 11.0 - 15.0 % LAB HEMETOLOGY METHOD 03/24/2025 11:53 AM [facility] Platelets 311 130 - 400 K/mcL LAB HEMETOLOGY METHOD 03/24/2025 11:53 AM [facility] MPV 9.6 7.0 - 11.0 FL LAB HEMETOLOGY METHOD 03/24/2025 11:53 AM [facility] NRBC 0.0 <1.0 % LAB HEMETOLOGY METHOD 03/24/2025 11:53 AM [facility] NRBC Absolute 0.00 <0.10 K/mcL LAB HEMETOLOGY METHOD 03/24/2025 11:53 AM [facility] Neutrophils Relative 66.9 % LAB HEMETOLOGY METHOD 03/24/2025 11:53 AM [facility] Lymphocytes Relative 19.3 % LAB HEMETOLOGY METHOD 03/24/2025 11:53 AM [facility] Monocytes Relative 10.7 % LAB HEMETOLOGY METHOD 03/24/2025 11:53 AM [facility] Eosinophils Relative 1.9 % LAB HEMETOLOGY METHOD 03/24/2025 11:53 AM [facility] Basophils Relative 0.6 % LAB HEMETOLOGY METHOD 03/24/2025 11:53 AM EDT [facility] Immature Granulocytes Relative 0.6 % LAB HEMETOLOGY METHOD 03/24/2025 11:53 AM EDT [facility] Neutrophils Absolute 6.45 1.50 - 7.00 K/mcL LAB HEMETOLOGY METHOD 03/24/2025 11:53 AM EDT [facility] Lymphocytes Absolute 1.86 1.00 - 5.00 K/mcL LAB HEMETOLOGY METHOD 03/24/2025 11:53 AM EDT [facility] Monocytes Absolute 1.03(H) 0.20 - 1.00 K/mcL LAB HEMETOLOGY METHOD 03/24/2025 11:53 AM EDT [facility] Eosinophils Absolute 0.18 0.00 - 0.50 K/mcL LAB HEMETOLOGY METHOD 03/24/2025 11:53 AM [facility] Basophils Absolute 0.06 0.00 - 0.20 K/mcL LAB HEMETOLOGY METHOD 03/24/2025 11:53 AM EDT [facility] Immature Granulocytes Absolute 0.06(H) 0.00 - 0.03 K/mcL LAB HEMETOLOGY METHOD 03/24/2025 11:53 AM [facility] Blood Venous blood specimen / Unknown Venipuncture / Unknown 03/24/2025 11:30 AM EDT 03/24/2025 11:46 AM EDT us Darian Berrios MD LAB BLOOD ORDERABLES Final Resu lt [facility] [address] [place] [address], * Activated partial thromboplastin time (03/24/2025 11:30 AM EDT) aPTT 35.6 24.1 - 39.3 sec LAB COAGULATION METHOD 03/24/2025 12:18 PM EDT [facility] Blood Venous blood specimen / Unknown Venipuncture / Unknown 03/24/2025 11:30 AM EDT 03/24/2025 12:18 PM EDT us Darian Berrios MD LAB BLOOD ORDERABLES Final Resu lt Performing Organization Address [facility]/ZIP Co de Phone Number [facility] [address] [place] [address], [place] [phone] * Prothrombin time with INR (03/24/2025 11:30 AM EDT) Pathologist [facility] Protime 12.8 10.6 - 13.9 sec LAB COAGULATION METHOD 03/24/2025 12:18 PM EDT [facility] INR 1.0 LAB COAGULATION METHOD 03/24/2025 12:18 PM EDT [facility] Blood Venous blood specimen / Unknown Venipuncture / Unknown 03/24/2025 11:30 AM EDT 03/24/2025 12:18 PM EDT us Darian Berrios MD LAB BLOOD ORDERABLES Final Resu lt Performing Organization Address [facility]/ZIP Co de Phone Number [facility] [address] [place] [address], [place] [phone] * (ABNORMAL) Basic metabolic panel (03/24/2025 11:30 AM EDT) [facility] Sodium 139 133 - 145 mmol/L LAB CHEMISTRY METHOD 03/24/2025 12:24 PM EDT [facility] Potassium 4.1 3.5 - 5.5 mmol/L LAB CHEMISTRY METHOD 03/24/2025 12:24 PM EDT [facility] Chloride 104 96 - 110 mmol/L LAB CHEMISTRY METHOD 03/24/2025 12:24 PM EDT [facility] CO2 29 21 - 32 mmol/L LAB CHEMISTRY METHOD 03/24/2025 12:24 PM EDT [facility] Anion Gap 6 3 - 11 LAB CHEMISTRY METHOD 03/24/2025 12:24 PM EDT [facility] Glucose 86 70 - 100 mg/dL LAB CHEMISTRY METHOD 03/24/2025 12:24 PM EDT [facility] BUN 12 5 - 25 mg/dL LAB CHEMISTRY METHOD 03/24/2025 12:24 PM EDT [facility] Creatinine 1.15(H) 0.50 - 1.10 mg/dL LAB CHEMISTRY METHOD 03/24/2025 12:24 PM EDT [facility] eGFR 51(L) >=60 mL/min/1. 73m2 LAB CHEMISTRY METHOD 03/24/2025 12:24 PM EDT [facility] Comment:Calculation based on the Chronic Kidney Disease Epidemiology Collaboration (CKD-EPI) equation refit without adjustment for race. BUN/Creatinine Ratio 10.4 LAB CHEMISTRY METHOD 03/24/2025 12:24 PM EDT [facility] Calcium 9.6 8.5 - 10.5 mg/dL LAB CHEMISTRY METHOD 03/24/2025 12:24 PM [facility] Blood Venous blood specimen / Unknown Venipuncture / Unknown 03/24/2025 11:30 AM EDT 03/24/2025 11:46 AM EDT Darian Berrios MD LAB BLOOD ORDERABLES Final Resu lt [facility] [address] [place] [address], * Depression Screening (10/03/2023) Depression Screening Abstracted us Historical Provider HEALTH MAINTENANCE Final Result * DXA BONE DENSITY STUDY 1+ SITS AXIAL SKEL (03/22/2021 12:43 PM EDT) Anatomical Region Laterality Modality Bone Densitometr y 12/21/2020 11:2 4 AM EDT Narrative 03/22/2021 4:24 PM EDT BONE DENSITY Lumbar Spine T-score is -2.1 (SD relative to 20-29 y/o adult) Z-score is -0.2 (SD relative to age matched peers) This is consistent with osteopenia by criteria defined by the WHO. Left Hip T-score is -2.3 Z-score is +0.2 This is consistent with osteopenia by criteria defined by the WHO. Impression: Based on the World Health Organization criteria, Alba Sneed should be classified as having osteopenia. This patient has a 0.1% risk of major osteoporotic fracture and a 0.1% risk of hip fracture over the next 10 years. (World Health Organization Fracture Risk Assessment) The [facility] Department of Internal Medicine recommends using National Osteoporosis Foundation (NOF) guidelines in treatment decisions related to osteoporosis. NOF guidelines suggest considering treatment for postmenopausal women and men aged 50 or older presenting with the following: History of hip or vertebral fracture. T-score less than or equal to -2.5 (DXA) at the femoral neck, total hip, or spine, after appropriate evaluation to exclude secondary causes. Low bone mass (T-score between -1.0 and -2.5 at the femoral neck or spine) AND a 10-year probability of a hip fracture greater than or equal to 3% OR a 10-year probability of a major osteoporosis-related fracture greater than or equal to 20% based on the [place]-adapted WHO algorithm Please note that all treatment decisions require clinical judgment and consideration of individual patient factors, including patient preferences, co-morbidities, previous drug use, risk factors not captured in the FRAX model (e.g., frailty, falls, vitamin D deficiency, increased bone turnover, interval significant decline in bone density) and possible under- or over-estimation of fracture risk by FRAX. Procedure Note Elizabeth Vasquez MD - 06/29/2022 BONE DENSITY Lumbar Spine T-score is -2.1 (SD relative to 20-29 y/o adult) Z-score is -0.2 (SD relative to age matched peers) This is consistent with osteopenia by criteria defined by the WHO. Left Hip T-score is -2.3 Z-score is +0.2 This is consistent with osteopenia by criteria defined by the WHO. Impression: Based on the World Health Organization criteria, Alba Sneed should beclassified as having osteopenia. This patient has a 0.1% risk of majorosteoporotic fracture and a 0.1% risk of hip fracture over the next 10years. (World Health Organization Fracture Risk Assessment) The [facility] Department of Internal Medicine recommendsusing National Osteoporosis Foundation (NOF) guidelines in treatmentdecisions related to osteoporosis. NOF guidelines suggest consideringtreatment for postmenopausal women and men aged 50 or older presentingwith the following: History of hip or vertebral fracture. T-score less than or equal to -2.5 (DXA) at the femoral neck, total hip,or spine, after appropriate evaluation to exclude secondary causes. Low bone mass (T-score between -1.0 and -2.5 at the femoral neck or spine)AND a 10-year probability of a hip fracture greater than or equal to 3% ORa 10-year probability of a major osteoporosis-related fracture greaterthan or equal to 20% based on the [place]-adapted WHO algorithm Please note that all treatment decisions require clinical judgment andconsideration of individual patient factors, including patientpreferences, co-morbidities, previous drug use, risk factors not capturedin the FRAX model (e.g., frailty, falls, vitamin D deficiency, increasedbone turnover, interval significant decline in bone density) and possibleunder- or over-estimation of fracture risk by FRAX. [facility] IMG DXA PROCEDURES Final Resu lt * SCREENING MAMMOGRAPHY BI 2-VIEW BREAST INC CAD (03/22/2021 11:21 AM EDT) Anatomical Region Laterality Modality Radiographic Shavon ging 12/21/2020 11:2 4 AM EDT Narrative 03/23/2021 1:20 PM EDT This is a summary report. The complete report is available in the patient's medical record. If you cannot access the medical record, please contact the sending organization for a detailed fax or copy. Full field digital screening 2D and 3D mammography, reviewed with CAD and compared to previous mammogram of 07/11/2018. The breast tissue is heterogeneously dense, limiting sensitivity. No suspicious mass, architectural distortion or suspicious calcifications are identified. IMPRESSION: : Dense breast tissue, limiting the sensitivity of mammography. No mammographic evidence of malignancy. BIRADS 1-Negative; N. 5 year breast cancer risk assessment 1.4 % Lifetime breast cancer risk assessment 4.9 % Breast cancer risk category Low (<15%) Procedure Note Mary Davidson MD - 06/13/2022 This is a summary report. The complete report is available in thepatient's medical record. If you cannot access the medical record, pleasecontact the sending organization for a detailed fax or copy. Full field digital screening 2D and 3D mammography, reviewed with CAD andcompared to previous mammogram of 07/11/2018. The breast tissue isheterogeneously dense, limiting sensitivity. No suspicious mass,architectural distortion or suspicious calcifications are identified. IMPRESSION: : Dense breast tissue, limiting the sensitivity of mammography. Nomammographic evidence of malignancy. BIRADS 1-Negative; N. 5 year breast cancer risk assessment 1.4 % Lifetime breast cancer risk assessment 4.9 % Breast cancer risk category Low (<15%) [facility] IMG XR PROCEDURES Final Resul t * Colonoscopy (10/21/2018) [facility] Colonoscopy No interpreta tion,abstr acted Anatomical Region Laterality Modality Other Historical Provider HEALTH MAINTENANCE Final Result * Hepatitis C Screening (09/20/2017) [facility] Hepatitis C Screening Abstracted Historical Provider HEALTH MAINTENANCE Final Result from Last 3 Months or Most Recently Relevant to Health Maintenance Insurance [employer] Advance Directives * Full Code - Default (Latest Code Status on File) Date Activated Date Inactivated Comments 03/24/2025 2:03 PM 03/25/2025 4:51 AM This is orde r is used when code status has not been discussed with the patient, or code status is otherwise unknown/unconfirmed To update the patient's code status, place a code status order. Do not modify or discontinue any currently active code status orders. * Full Code - Default Date Activated Date Inactivated Comments 03/24/2025 11:13 AM 03/24/2025 2:03 PM This is ord er is used when code status has not been discussed with the patient, or code status is otherwise unknown/unconfirmed To update the patient's code status, place a code status order. Do not modify or discontinue any currently active code status orders. * Full Code - Default Date Activated Date Inactivated Comments 10/14/2024 1:04 PM 10/14/2024 10:30 PM This is ord er is used when code status has not been discussed with the patient, or code status is otherwise unknown/unconfirmed To update the patient's code status, place a code status order. Do not modify or discontinue any currently active code status orders. * No CPR/Do Not Intubate Date Activated Date Inactivated Comments 10/02/2024 3:41 PM 10/14/2024 11:05 AM This code s tatus was ascertained in the following way: Code status discussion: discussion with patient To update the patient's code status, place a code status order. Do not modify or discontinue any currently active code status orders. * Full Code - Default Date Activated Date Inactivated Comments 06/02/2024 10:52 AM 06/02/2024 8:06 PM This is ord er is used when code status has not been discussed with the patient, or code status is otherwise unknown/unconfirmed To update the patient's code status, place a code status order. Do not modify or discontinue any currently active code status orders. Care Teams Pet Counselor Relationship Specialty Start Date End Date Stephen Kapoor MD [address] [place] [phone] PCP - General Internal Medicine 04/24/24
--- OUTSIDE RECORDS SUMMARY | 2025-06-17 12:17 | XMS_ITS | Patient Health Record ---
Author Organization [facility] Address [address] [place] [address] Care Team Providers Care Hosiery Repairer Name Role Phone Stephen Kapoor MD Primary Care Provider Adithya Jones Unavailable [phone] KELSEY CURTIS Unavailable Unavailable Reason For Referral No Information Plan Of Treatment No Information Insurance Providers Payer Name Payer Address Payer Phone Subscriber Number Group Number Insured Name Patient Relationship to Insured Coverage Start Date Coverage End Date MEDICARE OF [place] [address] [place] [id number] [phone] [id number] ESTHER ALMONTE Self - patient is the insured MEDICAID OF [facility] [address] [place] [phone] [id number] ESTHER ALMONTE Self - patient is the insured
--- OUTSIDE RECORDS SUMMARY | 2025-06-17 12:17 | XMS_ITS | Encounter Summary ---
Author Organization [facility] Address [address] [place] [address] Care Team Providers Care Electric Stop Installer Name Role Phone Stephen Kapoor MD Primary Care Provider [phone] Encounter Details Date Type Department Care Team (Late Contact Info) Description 04/16/2025 Results Follow-Up Adult Medicine [address] [phone] Stephen Kapoor MD [address] [place] [address] Social History Tobacco Use Types Packs/Day Years [...] AM EST documented as of this encounter Plan of Treatment Upcoming Encounters Date Type Department Care Team (Late Contact Info) Description 07/20/2025 1:00 PM EST Office Visit Adult Medicine [address] [phone] Neli Jack NP [address] [place] [address] 11/17/2025 8:30 AM EDT Office Visit Urogynecology - [place] [address] [place], [place] [phone] Ashley Castellanos MD [address] [facility] [address] [place] [address] 05/19/2026 9:15 AM EST Ancillary Procedure [facility] [address] [place] [address] documented as of this encounter Visit Diagnoses Not on filedocumented in this encounter Additional Health Concerns Assessment Noted Time PHQ-9 Depression Total Score: 0 09/28/19 2:30 PM EDT A fall risk assessment has been complete d for the patient 10/02/2024 3:13 PM EDT documented as of this encounter Care Teams Electric Stop Installer Relationship Specialty Start Date End Date Stephen Kapoor MD [address] [place] [address] PCP - General Internal Medicine 04/24/24 documented as of this encounter
[2025-06-17 12:49] VITALS: BP 125/59; PULSE 70; RESP 16; TEMP 36.6; O2SAT 96
--- NOTE | 2025-06-17 12:59 | ECG_ITS ---
Test Reason : REPEAT EKG Blood Pressure : */* mmHG Vent. 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
--- NOTE | 2025-06-17 13:05 | MHC.EDTECH ---
Ambulated patient around block of ED O2 sat 91%, HR fluctuated from 71-80
[2025-06-17 14:16] VITALS: BP 132/54; PULSE 67; RESP 16; TEMP 36.8; O2SAT 94
== END 2025-06-17 14:17 | disposition home or self-care (01) ==
PROVIDERS: Physician Assistant Medical; Registered Nurse Emergency; Emergency Provider Emergency Medicine; PCP Internal Medicine
DX: J44.1 Chronic obstructive pulmonary disease with (acute) exacerbation (principal); R06.02 Shortness of breath; R05.9 Cough, unspecified; Z03.818 Encounter for observation for suspected exposure to other biological agents ruled out; I10 Essential (primary) hypertension; E78.00 Pure hypercholesterolemia, unspecified; K70.31 Alcoholic cirrhosis of liver with ascites; Z79.02 Long term (current) use of antithrombotics/antiplatelets; Z79.899 Other long term (current) drug therapy
CPT/HCPCS: 36415; 71046; 80053; 83880; 85025; 85610; 87637; 93005; 94640; 96365; 96375; 99285; J2919; J3475

== ENCOUNTER → 2025-06-17 11:00 | Outpatient (BNV) | payer OTHER, SELFPAY | PROVIDERS: Emergency Provider Emergency Medicine; PCP Internal Medicine; Visit Provider Radiology Diagnostic Ultrasound | DX: J98.09 Other diseases of bronchus, not elsewhere classified (principal) | CPT/HCPCS: 71046 ==

== ENCOUNTER → 2025-06-17 11:38 | Outpatient (BNV) | payer MEDICARE, SELFPAY | PROVIDERS: Emergency Provider Emergency Medicine; PCP Internal Medicine; Visit Provider Internal Medicine Cardiovascular Disease | DX: I49.9 Cardiac arrhythmia, unspecified (principal); I25.2 Old myocardial infarction | CPT/HCPCS: 93010 ==